=== PATIENT | male | born 1955 | race Caucasian/White ===

== ENCOUNTER → 2019-07-11 15:14 | Outpatient (CLI) | payer OTHER, SELFPAY ==
--- NOTE | 2019-07-11 15:18 | DI.RAD.S_ITS ---
PROCEDURE: XR LUMBAR SPINE 2-3V INDICATIONS: back pain TECHNIQUE: 3 views of the lumbar spine were acquired. COMPARISON: [facility], , CHEST 2 VIEW, 12/14/2010, 15:54. Merged with [facility], CHEST 2 VIEW, 11/05/2017, 12:46. [facility], , CHEST 2 VIEW, 11/12/2017, 10:28. FINDINGS: Bones: 5 [id number] vertebrae are present. There is abnormal bony alignment with grade 2 anterolisthesis of L5 on S1 and slight grade 1 retrolisthesis of L4 on L5. No vertebral body compression fractures. No suspicious bony lesions. There is a moderate degree of degenerative disc disease at L2-3 and mild to moderate such degeneration elsewhere. 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 Soft tissues: Overlying bowel gas pattern is normal. No suspicious soft tissue calcifications. IMPRESSION: Chronic degenerative changes without acute disease as discussed above, allowing for slight retrolisthesis of L4 and L5 and moderate anterolisthesis of L5 on S1. No compression fractures seen. Dictated by: Reji Stovall M.D. on 07/11/2019 at 15:48 Approved by: Reji Stovall M.D. on 07/11/2019 at 15:51
== END ==
PROVIDERS: PCP Family Medicine; Visit Provider Hospitalist
DX: M54.5 Low back pain (principal); M51.16 Intervertebral disc disorders with radiculopathy, lumbar region; M47.26 Other spondylosis with radiculopathy, lumbar region; M47.27 Other spondylosis with radiculopathy, lumbosacral region; M43.17 Spondylolisthesis, lumbosacral region
CPT/HCPCS: 72100

== ENCOUNTER → 2019-07-15 14:29 | Outpatient (CLI) | payer OTHER, SELFPAY ==
--- NOTE | 2019-07-15 14:31 | DI.RAD.S_ITS ---
PROCEDURE: XR THORACIC SPINE 3V INDICATIONS: back pain TECHNIQUE: 3 views of the thoracic spine were acquired. COMPARISON: [facility], , XR LUMBAR SPINE 2-3V, 07/11/2019, 15:17. [facility], , CHEST 2 VIEW, 11/12/2017, 10:28. FINDINGS: Bones: No fractures or dislocations. No suspicious bony lesions. Mild degenerative disc disease in the lower thoracic spine. 12 pairs of ribs are noted, and appear intact where visualized. Soft tissues: No paravertebral stripe thickening. IMPRESSION: Mild degenerative disease in the lower thoracic spine. Dictated by: Deborah Amador M.D. on 07/15/2019 at 17:48 Approved by: Deborah Amador M.D. on 07/15/2019 at 17:50
[2019-07-15 15:46] LABS: Add Manual Diff / Slide Review NO; Basophils Absolute Auto 100 /uL (0-100); Basophils Percent Auto 0.6 % (0-2); Eosinophils Absolute Auto 0 /uL (0-450); Eosinophils Percent Auto 0.5 % (2-4); Hematocrit 36.9 % (41-53); Hemoglobin 12.5 g/dL (13.5-17.5); Lymphocytes Absolute Auto 800 /uL (1100-4500); Lymphocytes Percent Auto 10.6 % (25-40); Mean Corpuscular HGB Conc 33.9 % (30-36); Mean Corpuscular Hemoglobin 30.3 PG (26-34); Mean Corpuscular Volume 89.4 fL (80-100); Monocytes Absolute Auto 600 /uL (0-900); Monocytes Percent Auto 8.2 % (3-14); Neutrophils Absolute Auto 6300 /uL (1500-7000); Neutrophils Percent Auto 80.1 % (50-75); Platelet Count 446 X10^3/uL (150-400); Red Blood Cell Count 4.13 X10^6/uL (4.5-5.9); Red Cell Distribution Width 13.2 % (11.6-14.8); White Blood Cell Count 7.9 X10^3/uL (4.5-11.0)
[2019-07-15 16:21] LABS: Alanine Aminotransferase 15 IU/L (21-72); Albumin 3.7 g/dL (3.5-5.0); Albumin Globulin Ratio 1.3 (1.0-2.8); Alkaline Phosphatase 71 U/L (38-126); Aspartate Aminotransferase 23 IU/L (17-59); BUN Creatinine Ratio 13.3 (6-22); Bilirubin Total 0.3 mg/dL (0.2-1.3); Blood Urea Nitrogen 8 mg/dL (9-20); Calcium 9.3 mg/dL (8.4-10.2); Carbon Dioxide 26 mmol/L (22-32); Chloride 88 mmol/L (98-107); Estimated Glomerular Filt Rate > 60.0 mL/min (>60); Globulin 2.9 g/dL (1.7-4.1); Glucose 92 mg/dL (80-110); HEMOLYSIS < 15 (0-50); Potassium 5.1 mmol/L (3.4-5.1); Sodium 125 mmol/L (137-145); Total Protein 6.6 g/dL (6.3-8.2)
== END ==
PROVIDERS: PCP Family Medicine; Visit Provider Hospitalist
DX: M54.9 Dorsalgia, unspecified (principal); M47.814 Spondylosis without myelopathy or radiculopathy, thoracic region
CPT/HCPCS: 36415; 72072; 80053; 85025

== ENCOUNTER → 2019-07-16 14:02 | Outpatient (CLI) | payer OTHER, SELFPAY ==
--- NOTE | 2019-07-16 14:06 | DI.RAD.S_ITS ---
PROCEDURE: XR CHEST 2V INDICATIONS: back pain TECHNIQUE: 2 views of the chest were acquired. COMPARISON: [facility], , XR THORACIC SPINE 3V, 07/15/2019, 14:33. [facility], , CHEST 2 VIEW, 11/12/2017, 10:28. FINDINGS: Surgical changes and devices: None. Lungs and pleura: Interval development of diffuse opacities of the right hemithorax with focal consolidation involving the medial segment of the right middle lobe and the right lower lobe with mild patchy opacities in the left mid and lower lung zones. Small right pleural effusion. Stable blunting of the left costophrenic angle. Findings appear to be superimposed on background changes of chronic obstructive pulmonary physiology. No pneumothorax. Mediastinum: The cardiomediastinal contours remain stable. Heart size is normal. Bones and chest wall: No suspicious bony abnormalities. Soft tissues appear unremarkable. IMPRESSION: Interval development of right middle lobe and right lower lobe consolidation with diffuse opacities of the left hemithorax as well as patchy left basilar opacities. Findings are consistent with multiple focal pneumonia. Additionally, there is an associated right pleural effusion and chronic background changes of chronic obstructive pulmonary physiology. Recommend follow up chest radiograph 4-6 weeks after treatment to document resolution of findings and/or return to baseline examination. Findings were discussed with Dr. Calli Rose at 1440hrs on 07/16/2019 Dictated by: Javy Iverson M.D. on 07/16/2019 at 14:30 Approved by: Javy Iverson M.D. on 07/16/2019 at 14:42
== END ==
PROVIDERS: PCP Family Medicine; Visit Provider Hospitalist
DX: M54.9 Dorsalgia, unspecified (principal); J90 Pleural effusion, not elsewhere classified; M54.30 Sciatica, unspecified side
CPT/HCPCS: 71046

== ENCOUNTER 2019-08-12 10:07 | Inpatient (IN) | payer OTHER, SELFPAY ==
[2019-08-12] VITALS (10 sets, daily range): BP systolic 134–164; BP diastolic 76–93; PULSE 84–108; RESP 14–24; TEMP 36.5–37.3; O2SAT 90–97; BMI 20.7
--- NOTE | 2019-08-12 10:17 | ED.SOB ---
HPI - SOB/Dyspnea General Chief Complaint: Shortness of Breath/Dyspnea Stated Complaint: difficulty breathing Time Seen by Provider: 08/12/19 10:17 Source: patient Mode of arrival: Ambulatory Limitations: no limitations History of Present Illness HPI Narrative: 64-year-old smoker with history of COPD presents with a chief complaint of significantly worsening shortness of breath over the past few days. He has had subjective fever been ongoing productive cough. On arrival he is getting through about 3 words before taking a deep breath and has a pulse ox in the upper 80s. He does not use home oxygen. Patient had been on pneumonia about a month ago and symptoms largely resolved until recently when he started feeling quite ill again. MD Complaint: shortness of breath and cough Onset (ago): week(s) Context: recent illness Severity: moderate Consistency/Duration: constant Relieving factors: rest Exacerbating factors: exertion Known history of: COPD Related Data Home Medications Medication Instructions Recorded Confirmed acetaminophen 650 mg PO PRN PRN #0 09/06/16 08/12/19 calcium carbonate [Tums] 500 mg PO PRN PRN #0 11/07/16 08/12/19 diphenhydramine HCl [Benadryl 50 mg PO BEDTIME #0 11/07/16 08/12/19 Allergy] omeprazole 40 mg PO QAM 08/12/19 08/12/19 triamcinolone acetonide 1 applictn TOPICAL BEDTIME 08/12/19 08/12/19 Previous Rx's Medication Instructions Recorded albuterol sulfate 90 mcg/actuation 1 puff INHALATION QID PRN #1 inh 07/15/19 aerosol inhaler ibuprofen 600 mg tablet 600 mg PO Q6H PRN #30 tab 07/15/19 tiotropium bromide 18 mcg capsule 1 cap INHALATION DAILY #60 07/30/19 with inhalation device inhalation Allergies Allergy/AdvReac Type Severity Reaction Status Date / Time No Known Drug Allergies Allergy Verified 08/12/19 10:25 Review of Systems Constitutional Constitutional: Denies chills, Denies fatigue, Denies fever(s), Denies frequent falls, Denies lethargy and Denies weakness Eyes Eyes: Denies change in vision, Denies eye discharge, Denies irritation and Denies loss of vision ENT Ears, Nose, Mouth, and Throat: Denies change in voice, Denies dizziness, Denies neck pain, Denies sore throat and Denies throat swelling Cardiovascular Cardiovascular: Denies chest pain, Denies irregular heart rhythm, Denies lightheadedness, Denies palpitations, Denies dyspnea, Denies dyspnea on exertion and Denies orthopnea Respiratory Respiratory: Denies cough, Denies dyspnea, Denies dyspnea on exertion and Denies wheezing Gastrointestinal Gastrointestinal: Denies abdominal pain, Denies change in bowel habits, Denies diarrhea, Denies nausea and Denies vomiting Genitourinary Genitourinary: Denies hematuria, Denies flank pain, Denies urinary incontinence and Denies urinary urgency Musculoskeletal Musculoskeletal: Denies back pain, Denies muscle weakness, Denies neck pain, Denies numbness and Denies tingling Integumentary/Breasts Skin/Breast: Denies pruritus, Denies erythema, Denies rash and Denies wounds Neurologic Neurologic: Denies behavioral changes, Denies confusion, Denies dizziness, Denies frequent falls, Denies loss of vision, Denies numbness, Denies tingling and Denies weakness Psychiatric Psychiatric: Denies anxiety, Denies behavioral changes, Denies confusion, Denies depression, Denies homicidal ideation and Denies suicidal ideation Endocrine Endocrine: Denies fatigue, Denies flushing and Denies palpitations Hematologic/Lymphatic Hematologic/Lymphatic: Denies easy bruising Allergic/Immunologic Allergic/Immunologic: Denies urticaria, Denies throat swelling and Denies wheezing Patient History Medical History (Updated 08/12/19 @ 13:52 by Isma Stark DO) Community acquired pneumonia (Acute 06/2019) COPD (chronic obstructive pulmonary disease) (Acute) Social History household members: none Smoking Status: Current every day smoker alcohol intake: former Alcohol type: other Substance Use Type: does not use Exam Initial Vital Signs Initial Vital Signs: Vital Signs Temperature 97.8 F 08/12/19 10:10 Pulse Rate 108 H 08/12/19 10:10 Respiratory Rate 20 08/12/19 10:10 Blood Pressure 164/85 H 08/12/19 10:10 Pulse Oximetry 90 L 08/12/19 10:10 Course Orders Ordered: Acetaminophen (Tylenol) 650 mg PO Q6HR PRN PRN Reason: As Needed for Fever/Mild Pain Last Admin: 08/12/19 19:13 Dose: 650 mg Documented by: MELANIE Albuterol (Ventolin) 2.5 mg INH [id number] PRN PRN Reason: Shortness Of Breath Last Admin: 08/12/19 22:38 Dose: 2.5 mg Documented by: COOPER Albuterol/Ipratropium (Duoneb) 3 ml INH [id number] [facility] Heparin Sodium (Porcine) (Heparin) 5,000 unit SUBCUT BID [facility] Last Admin: 08/12/19 21:49 Dose: 5,000 unit Documented by: MELANIE Sodium Chloride (Normal Saline 0.9%) 1,000 mls @ 150 mls/hr IV CONT KOFFI Last Admin: 08/13/19 02:38 Dose: 150 mls/hr Documented by: Infusion: 08/13/19 02:38 Dose: 150 mls/hr Documented by: Admin: 08/12/19 22:45 Dose: 150 mls/hr Documented by: Infusion: 08/12/19 18:56 Dose: 150 mls/hr Documented by: Infusion: 08/12/19 17:30 Dose: 150 mls/hr Documented by: Infusion: 08/12/19 16:06 Dose: 0 mls/hr Documented by: Admin: 08/12/19 10:51 Dose: 150 mls/hr Documented by: FIDEL Prednisone (Deltasone) 40 mg PO DAILY [facility] Trazodone HCl (Desyrel) 50 mg PO BEDTIME [facility] Last Admin: 08/12/19 23:09 Dose: 50 mg Documented by: MELANIE Discontinued Medications Albuterol/Ipratropium (Duoneb) 3 ml INH NOW ONE Stop: 08/12/19 10:22 Last Admin: 08/12/19 10:50 Dose: 3 ml Documented by: SAM Albuterol/Ipratropium (Duoneb) 3 ml INH NOW ONE Stop: 08/12/19 10:28 Last Admin: 08/12/19 11:09 Dose: Not Given Documented by: APRIL Ceftriaxone Sodium/Dextrose (Rocephin) 1 gm in 50 mls @ 100 mls/hr IV NOW ONE Stop: 08/12/19 10:50 Last Infusion: 08/12/19 11:25 Dose: 0 mls/hr Documented by: Admin: 08/12/19 10:50 Dose: 100 mls/hr Documented by: FIDEL Ceftriaxone Sodium/Dextrose (Rocephin) 1 gm in 50 mls @ 100 mls/hr IV NOW ONE Stop: 08/12/19 13:32 Last Admin: 08/12/19 13:06 Dose: Not Given Documented by: APRIL Azithromycin 500 mg/ Dextrose 250 mls @ 250 mls/hr IV NOW ONE Stop: 08/12/19 13:04 Last Infusion: 08/12/19 14:50 Dose: 0 mls/hr Documented by: Admin: 08/12/19 13:21 Dose: 250 mls/hr Documented by: APRIL Methylprednisolone (Solu-Medrol 125 Mg Vial) 125 mg IV NOW ONE Stop: 08/12/19 10:22 Last Admin: 08/12/19 10:50 Dose: 125 mg Documented by: FIDEL Vital Signs Vital signs: Vital Signs - 8 hr 08/12/19 10:10 08/12/19 10:53 08/12/19 12:51 Temperature 97.8 F Pulse Rate 108 H 90 85 Respiratory Rate 20 20 22 Blood Pressure 164/85 H Blood Pressure [Right Arm] 146/82 H Pulse Oximetry 90 L 94 92 08/12/19 13:00 08/12/19 13:33 Temperature Pulse Rate 84 89 Respiratory Rate 20 18 Blood Pressure Blood Pressure [Right Arm] 142/84 H 161/93 H Pulse Oximetry 96 96 MDM - SOB/Dyspnea Lab Data Result diagrams: 08/12/19 10:25 08/12/19 10:25 Labs: Lab Results 08/12/19 08/12/19 08/12/19 Range/Units 10:25 10:25 10:25 WBC 8.6 (4.5-11.0) X10^3/uL RBC 4.09 L (4.5-5.9) X10^6/uL Hgb 12.1 L (13.5-17.5) g/dL Hct 35.7 L (41-53) % MCV 87.2 (80-100) fL MCH 29.5 (26-34) PG MCHC 33.8 (30-36) % RDW 13.8 (11.6-14.8) % Plt Count 396 (150-400) X10^3/uL Neut % (Auto) 83.8 H (50-75) % Lymph % (Auto) 10.0 L (25-40) % [place] % (Auto) 4.6 (3-14) % Eos % (Auto) 0.8 L (2-4) % Baso % (Auto) 0.8 (0-2) % Neut # (Auto) 7200 H (7927-5179) /uL Lymph # (Auto) 900 L (4351-7480) /uL [place] # (Auto) 400 (0-900) /uL Eos # (Auto) 100 (0-450) /uL Baso # (Auto) 100 (0-100) /uL ABG pH (7.35-7.45) ABG pCO2 (35-45) mmHg ABG pO2 (80-100) mmHg ABG HCO3 (22-26) mmol/L ABG Total CO2 (21-31) mmol/L ABG O2 Saturation (95-100) % ABG Base Excess (-2-2) mmol/L FiO2 Sodium 126 L (137-145) mmol/L Potassium 4.1 (3.4-5.1) mmol/L Chloride 89 L (98-107) mmol/L Carbon Dioxide 22 (22-32) mmol/L BUN 15 (9-20) mg/dL Creatinine 0.90 (0.66-1.25) mg/dL Estimated GFR > 60.0 (>60) mL/min BUN/Creatinine Ratio 16.7 (6-22) Glucose 114 H (80-110) mg/dL Lactate (0.7-2.1) mmol/L Calcium 9.0 (8.4-10.2) mg/dL Magnesium 1.4 L (1.6-2.3) mg/dL Total Bilirubin 0.5 (0.2-1.3) mg/dL AST 27 (17-59) IU/L ALT 13 L (21-72) IU/L Alkaline Phosphatase 83 (38-126) U/L Total Creatine Kinase 54 L (55-170) U/L CK-MB (CK-2) TNP CK-MB (CK-2) Rel Index TNP Troponin I 0.061 H (0.01-0.034) ng/mL B-Natriuretic Peptide 261 H (<100) Total Protein 6.7 (6.3-8.2) g/dL Albumin 3.6 (3.5-5.0) g/dL Globulin 3.1 (1.7-4.1) g/dL Albumin/Globulin Ratio 1.2 (1.0-2.8) Procalcitonin (<0.5) ng/mL 08/12/19 08/12/19 08/12/19 Range/Units 10:25 10:25 10:35 WBC (4.5-11.0) X10^3/uL RBC (4.5-5.9) X10^6/uL Hgb (13.5-17.5) g/dL Hct (41-53) % MCV (80-100) fL MCH (26-34) PG MCHC (30-36) % RDW (11.6-14.8) % Plt Count (150-400) X10^3/uL Neut % (Auto) (50-75) % Lymph % (Auto) (25-40) % [place] % (Auto) (3-14) % Eos % (Auto) (2-4) % Baso % (Auto) (0-2) % Neut # (Auto) (7523-1163) /uL Lymph # (Auto) (1397-6524) /uL [place] # (Auto) (0-900) /uL Eos # (Auto) (0-450) /uL Baso # (Auto) (0-100) /uL ABG pH 7.43 (7.35-7.45) ABG pCO2 27.2 L (35-45) mmHg ABG pO2 79 L (80-100) mmHg ABG HCO3 18 L (22-26) mmol/L ABG Total CO2 19 L (21-31) mmol/L ABG O2 Saturation 96 (95-100) % ABG Base Excess -6.0 L (-2-2) mmol/L FiO2 21 Sodium (137-145) mmol/L Potassium (3.4-5.1) mmol/L Chloride (98-107) mmol/L Carbon Dioxide (22-32) mmol/L BUN (9-20) mg/dL Creatinine (0.66-1.25) mg/dL Estimated GFR (>60) mL/min BUN/Creatinine Ratio (6-22) Glucose (80-110) mg/dL Lactate 1.1 (0.7-2.1) mmol/L Calcium (8.4-10.2) mg/dL Magnesium (1.6-2.3) mg/dL Total Bilirubin (0.2-1.3) mg/dL AST (17-59) IU/L ALT (21-72) IU/L Alkaline Phosphatase (38-126) U/L Total Creatine Kinase (55-170) U/L CK-MB (CK-2) CK-MB (CK-2) Rel Index Troponin I (0.01-0.034) ng/mL B-Natriuretic Peptide (<100) Total Protein (6.3-8.2) g/dL Albumin (3.5-5.0) g/dL Globulin (1.7-4.1) g/dL Albumin/Globulin Ratio (1.0-2.8) Procalcitonin 0.07 (<0.5) ng/mL 08/12/19 Range/Units 13:15 WBC (4.5-11.0) X10^3/uL RBC (4.5-5.9) X10^6/uL Hgb (13.5-17.5) g/dL Hct (41-53) % MCV (80-100) fL MCH (26-34) PG MCHC (30-36) % RDW (11.6-14.8) % Plt Count (150-400) X10^3/uL Neut % (Auto) (50-75) % Lymph % (Auto) (25-40) % [place] % (Auto) (3-14) % Eos % (Auto) (2-4) % Baso % (Auto) (0-2) % Neut # (Auto) (2772-7845) /uL Lymph # (Auto) (5937-0417) /uL [place] # (Auto) (0-900) /uL Eos # (Auto) (0-450) /uL Baso # (Auto) (0-100) /uL ABG pH (7.35-7.45) ABG pCO2 (35-45) mmHg ABG pO2 (80-100) mmHg ABG HCO3 (22-26) mmol/L ABG Total CO2 (21-31) mmol/L ABG O2 Saturation (95-100) % ABG Base Excess (-2-2) mmol/L FiO2 Sodium (137-145) mmol/L Potassium (3.4-5.1) mmol/L Chloride (98-107) mmol/L Carbon Dioxide (22-32) mmol/L BUN (9-20) mg/dL Creatinine (0.66-1.25) mg/dL Estimated GFR (>60) mL/min BUN/Creatinine Ratio (6-22) Glucose (80-110) mg/dL Lactate (0.7-2.1) mmol/L Calcium (8.4-10.2) mg/dL Magnesium (1.6-2.3) mg/dL Total Bilirubin (0.2-1.3) mg/dL AST (17-59) IU/L ALT (21-72) IU/L Alkaline Phosphatase (38-126) U/L Total Creatine Kinase (55-170) U/L CK-MB (CK-2) CK-MB (CK-2) Rel Index Troponin I 0.052 H (0.01-0.034) ng/mL B-Natriuretic Peptide (<100) Total Protein (6.3-8.2) g/dL Albumin (3.5-5.0) g/dL Globulin (1.7-4.1) g/dL Albumin/Globulin Ratio (1.0-2.8) Procalcitonin (<0.5) ng/mL Urine Dip Bedside Urine Glucose Negative Bedside Urine Bilirubin - Negative Bedside Urine Ketone - Negative Urine Specific [place] 1.015 Bedside Urine Occult Blood - Negative Bedside Urine pH 6.0 Bedside Urine Protein + 30 Bedside Urine Urobilinogen - Negative Bedside Urine Nitrite - Negative Bedside Urine Leukocytes - Negative Esterase MDM Narrative Medical decision making narrative: Multiple etiologies for patient's symptoms considered including: [Exacerbation of COPD versus community-acquired pneumonia versus other] On arrival he was quite SOB, tachypneic, 3 word sentences with O2 in the 80s. He was given pulmonary toilet and has some improvement, but still working. CXR notes multilobar pneumonia Discharge Plan Departure Patient Disposition: Admitted As Inpatient Clinical Impression: Community acquired pneumonia Qualifiers: Laterality: left Lung location: unspecified part of lung Qualified Code(s): J18.9 - Pneumonia, unspecified organism COPD (chronic obstructive pulmonary disease) Qualifiers: COPD type: COPD with acute exacerbation Qualified Code(s): J44.1 - Chronic obstructive pulmonary disease with (acute) exacerbation Discharge Date/Time: 08/12/19 16:05 Referrals: Lili Schaeffer DO [Primary Care Provider] - Admit Date/Time: 08/12/19 14:59 Admit Provider: Dario Pack
--- NOTE | 2019-08-12 10:24 | DI.RAD.S_ITS ---
PROCEDURE: XR CHEST 2V INDICATIONS: shortness of breath TECHNIQUE: 2 views of the chest were acquired. COMPARISON: [facility], CR, XR CHEST 2V, 07/16/2019, 14:05. FINDINGS: Surgical changes and devices: None. Lungs and pleura: Increasing right perihilar and infrahilar alveolar consolidation as well as slight worsening of mild airspace disease throughout the right upper lobe. The left lung is hyperexpanded, demonstrates coarse interstitium, and a new small infrahilar parenchymal opacity. Blunting of the right lateral costophrenic angle secondary to pleural thickening or effusion. No pneumothorax. Mediastinum: Mediastinal contours are normal. Heart size is normal. Bones and chest wall: No suspicious bony abnormalities. Soft tissues appear unremarkable. IMPRESSION: Worsening of diffuse right lung parenchymal opacity with consolidation in the right infrahilar region. This may be an infectious process, inflammation, or neoplasm. Given considerable interval worsening, further evaluation with contrast-enhanced chest CT is recommended. Hyperexpanded left lung with a small left lower lobe consolidation. Dictated by: Sushma Cruz M.D. on 08/12/2019 at 12:28 Approved by: Sushma Cruz M.D. on 08/12/2019 at 12:32
[2019-08-12 10:38] LABS: Add Manual Diff / Slide Review NO; Basophils Absolute Auto 100 /uL (0-100); Basophils Percent Auto 0.8 % (0-2); Eosinophils Absolute Auto 100 /uL (0-450); Eosinophils Percent Auto 0.8 % (2-4); Hematocrit 35.7 % (41-53); Hemoglobin 12.1 g/dL (13.5-17.5); Lymphocytes Absolute Auto 900 /uL (1100-4500); Mean Corpuscular HGB Conc 33.8 % (30-36); Mean Corpuscular Hemoglobin 29.5 PG (26-34); Mean Corpuscular Volume 87.2 fL (80-100); Monocytes Absolute Auto 400 /uL (0-900); Monocytes Percent Auto 4.6 % (3-14); Neutrophils Absolute Auto 7200 /uL (1500-7000); Neutrophils Percent Auto 83.8 % (50-75); Platelet Count 396 X10^3/uL (150-400); Red Blood Cell Count 4.09 X10^6/uL (4.5-5.9); Red Cell Distribution Width 13.8 % (11.6-14.8); White Blood Cell Count 8.6 X10^3/uL (4.5-11.0)
[2019-08-12] MEDS: ALBUTEROL/IPRATROPIUM 3 ML AMPUL INH (10:50)
[2019-08-12] MEDS: methylPREDNISolone 125 MG/2 ML VIAL IV (10:50)
[2019-08-12] MEDS: CEFTRIAXONE 1 GM/50 ML FROZ.PIGGY IV (10:50)
[2019-08-12] MEDS: SODIUM CHLORIDE 0.9% 1,000 ML 150 ML IV ×2 (10:51→22:45)
[2019-08-12 10:52] LABS: Creatine Kinase 54 U/L (55-170); Magnesium 1.4 mg/dL (1.6-2.3)
[2019-08-12 10:53] LABS: Alanine Aminotransferase 13 IU/L (21-72); Albumin 3.6 g/dL (3.5-5.0); Albumin Globulin Ratio 1.2 (1.0-2.8); Alkaline Phosphatase 83 U/L (38-126); Aspartate Aminotransferase 27 IU/L (17-59); BUN Creatinine Ratio 16.7 (6-22); Bilirubin Total 0.5 mg/dL (0.2-1.3); Blood Urea Nitrogen 15 mg/dL (9-20); Carbon Dioxide 22 mmol/L (22-32); Chloride 89 mmol/L (98-107); Estimated Glomerular Filt Rate > 60.0 mL/min (>60); Globulin 3.1 g/dL (1.7-4.1); Glucose 114 mg/dL (80-110); HEMOLYSIS < 15 (0-50); Lactate (Lactic Acid) 1.1 mmol/L (0.7-2.1); Potassium 4.1 mmol/L (3.4-5.1); Sodium 126 mmol/L (137-145); Total Protein 6.7 g/dL (6.3-8.2)
--- NOTE | 2019-08-12 10:55 | RT ---
Addendum entered by Angela Elise, RT 08/12/19 19:21: Original Note: rt consult orderd by nurse. Pt not seen by MD yet. Pt takes flovent MDI. recent dx'd with pneumonia. No home O2. Pt is pleasant. See EMR for breath sounds. ABG drawn, results given to Dr sawant.
[2019-08-12 10:56] LABS: B Type Natriuretic Peptide 261 (<100)
[2019-08-12 11:04] LABS: Troponin I 0.061 ng/mL (0.01-0.034)
[2019-08-12 11:06] LABS: HCO3 ABG 18 mmol/L (22-26); PCO2 ABG 27.2 mmHg (35-45); PO2 ABG 79 mmHg (80-100); TCO2 ABG 19 mmol/L (21-31); pH ABG 7.43 (7.35-7.45)
[2019-08-12 11:07] LABS: Fractionated Inspired Oxygen 21; Oxygen Saturation ABG 96 % (95-100)
[2019-08-12 11:07] LABS: Procalcitonin 0.07 ng/mL (<0.5)
[2019-08-12] MEDS: AZITHROMYCIN 500 MG in DEXTROSE 5% IN WATER 250 ML IV (13:21)
[2019-08-12 13:46] LABS: Troponin I 0.052 ng/mL (0.01-0.034)
--- NOTE | 2019-08-12 17:32 | P.HP_ITS ---
History of Present Illness History of Present Illness Date Patient Seen: 08/12/19 Time Patient Seen: 17:32 Chief complaint: difficulty breathing Narrative: Rafy Renner is a 64-year-old male with past medical history of COPD (active smoker but trying to quit) presented to the ED with shortness of breath. His shortness of breath has been progressing over the past few months he says, but has been markedly worse over the past few days. He reported a subjective fe cynthia and ongoing productive cough of yellow sputum. In the emergency room he was having a lot of trouble breathing and had a pulse oximetry reading in the upper 80s and was unable to speak approximately 3 words before taking a deep breath. He reports outpatient treatment for pneumonia about a month ago and was feeling better again until a few days ago. He has been seeing his primary care physici an for help with smoking cessation as well as manipulation of his COPD medications to try and control his shortness of breath but this has not been helping much. He admitted to subjective fever with much questioning but initially denied this, he does have a productive cough of yellow sputum, but de nies nasal congestion or runny nose, he has diffuse bone pains which are unchanged the last few days and he further reports difficulty sleeping. He denies any nausea, vomiting, chest pain, palpitations. He is used to walking approximately 5 miles a day, however recently he is only able to go a few steps in the last few days he is short of breath at rest. In the ED the patient was hypoxic as noted above, he was given steroids and nebulizers which helped his breathing. His chest x-ray showed multi lobar pneumonia, a right-sided pleural effusion, and the patient was started on ceftriaxone and azithromycin. He was admitted to Medicine for hypoxemic respiratory failure secondary to likely pneumonia and pleural effusion with possible COPD exacerbation. Patient History Medical History (Updated 08/12/19 @ 13:52 by Isma Stark DO) Community acquired pneumonia (Acute 06/2019) COPD (chronic obstructive pulmonary disease) (Acute) Family & Social History Social History: household members none Prior Living Arrangements House Safety & Behavioral: Feels Safe in Current Yes Environment Been Physically Hurt or No Threatened By a Person Suicidal Ideation Description None Suicide Plan Description No Plan Tobacco & Substance use: Tobacco type cigarettes Smoking Status Current every day smoker alcohol intake former Substance Use Type does not use Meds Home Medications and Allergies Home Medications Medication Instructions Recorded Confirmed Type acetaminophen 650 mg PO PRN PRN #0 09/06/16 08/12/19 History calcium carbonate [Tums] 500 mg PO PRN PRN #0 11/07/16 08/12/19 History diphenhydramine HCl [Benadryl 50 mg PO BEDTIME #0 11/07/16 08/12/19 History Allergy] albuterol sulfate 90 mcg/actuation 1 puff INHALATION QID PRN #1 inh 07/15/19 08/12/19 Rx aerosol inhaler ibuprofen 600 mg tablet 600 mg PO Q6H PRN #30 tab 07/15/19 08/12/19 Rx tiotropium bromide 18 mcg capsule 1 cap INHALATION DAILY #60 07/30/19 08/12/19 Rx with inhalation device inhalation omeprazole 40 mg PO QAM 08/12/19 08/12/19 History triamcinolone acetonide 1 applictn TOPICAL BEDTIME 08/12/19 08/12/19 History Allergies Allergy/AdvReac Type Severity Reaction Status Date / Time No Known Drug Allergies Allergy Verified 08/12/19 10:25 Review of Systems Review of Systems Narrative: All other systems reviewed with the patient and are negative unless otherwise stated. Exam Vital Signs (past 8 hours): - 08/12/19 10:10 08/12/19 10:53 08/12/19 12:51 Temperature 97.8 F Pulse Rate 108 H 90 85 Respiratory Rate 20 20 22 Blood Pressure 164/85 H Blood Pressure [Right Arm] 146/82 H Pulse Oximetry 90 L 94 92 08/12/19 13:00 08/12/19 13:33 08/12/19 14:30 Temperature Pulse Rate 84 89 95 H Respiratory Rate 20 18 24 Blood Pressure Blood Pressure [Right Arm] 142/84 H 161/93 H 139/90 Pulse Oximetry 96 96 92 08/12/19 16:05 Temperature 97.7 F Pulse Rate 92 H Respiratory Rate 16 Blood Pressure 151/86 H Blood Pressure [Right Arm] Pulse Oximetry 96 Oxygen Delivery Method Room Air Oxygen Flow Rate 0 Narrative Exam Narrative: GENERAL APPEARANCE: Chronically mildly ill appearing male, pale, but in good spirits. SKIN: Inspection of the skin reveals no rashes, ulcerations or petechiae. HEENT: The sclerae were anicteric and conjunctivae were pink and moist. Extraocular movements were intact and pupils were equal, round with normal accommodation. External inspection of the ears and nose showed no scars, lesions, or masses. Lips, teeth, and gums showed normal mucosa. His dentition is poor. The oral mucosa, hard and soft palate, tongue and posterior pharynx were unremarkable. NECK: Supple and symmetric. There was no thyroid enlargement, and no tenderness, or masses were felt. CHEST: Normal AP diameter and normal contour without any kyphoscoliosis. LUNGS: Diminished breath sounds over the right lower lobe, diffuse upper and middle lobe expiratory wheezes bilaterally. CARDIOVASCULAR: There was a regular rate and rhythm without any murmurs, gallops, rubs. Peripheral pulses were 2+ and symmetric. ABDOMEN: Soft and nontender with normal bowel sounds. No ascites was noted. MUSCULOSKELETAL: There was no tenderness or effusions noted. Muscle strength and tone were normal. EXTREMITIES: No cyanosis, clubbing or edema. NEUROLOGIC: Alert and oriented x 3. Normal affect. Strength is +5/5 in the Upper Extremities and Lower Extremities Bilaterally. Sensation to touch was normal. Objective Labs Result Diagrams: 08/12/19 10:25 08/12/19 10:25 Labs: Laboratory Results - last 24 hr 08/12/19 08/12/19 08/12/19 10:25 10:25 10:25 WBC 8.6 RBC 4.09 L Hgb 12.1 L Hct 35.7 L MCV 87.2 MCH 29.5 MCHC 33.8 RDW 13.8 Plt Count 396 Neut % (Auto) 83.8 H Lymph % (Auto) 10.0 L [place] % (Auto) 4.6 Eos % (Auto) 0.8 L Baso % (Auto) 0.8 Neut # (Auto) 7200 H Lymph # (Auto) 900 L [place] # (Auto) 400 Eos # (Auto) 100 Baso # (Auto) 100 ABG pH ABG pCO2 ABG pO2 ABG HCO3 ABG Total CO2 ABG O2 Saturation ABG Base Excess FiO2 Sodium 126 L Potassium 4.1 Chloride 89 L Carbon Dioxide 22 BUN 15 Creatinine 0.90 Estimated GFR > 60.0 BUN/Creatinine Ratio 16.7 Glucose 114 H Lactate Calcium 9.0 Magnesium 1.4 L Total Bilirubin 0.5 AST 27 ALT 13 L Alkaline Phosphatase 83 Total Creatine Kinase 54 L CK-MB (CK-2) TNP CK-MB (CK-2) Rel Index TNP Troponin I 0.061 H B-Natriuretic Peptide 261 H Total Protein 6.7 Albumin 3.6 Globulin 3.1 Albumin/Globulin Ratio 1.2 Procalcitonin 08/12/19 08/12/19 08/12/19 10:25 10:25 10:35 WBC RBC Hgb Hct MCV MCH MCHC RDW Plt Count Neut % (Auto) Lymph % (Auto) [place] % (Auto) Eos % (Auto) Baso % (Auto) Neut # (Auto) Lymph # (Auto) [place] # (Auto) Eos # (Auto) Baso # (Auto) ABG pH 7.43 ABG pCO2 27.2 L ABG pO2 79 L ABG HCO3 18 L ABG Total CO2 19 L ABG O2 Saturation 96 ABG Base Excess -6.0 L FiO2 21 Sodium Potassium Chloride Carbon Dioxide BUN Creatinine Estimated GFR BUN/Creatinine Ratio Glucose Lactate 1.1 Calcium Magnesium Total Bilirubin AST ALT Alkaline Phosphatase Total Creatine Kinase CK-MB (CK-2) CK-MB (CK-2) Rel Index Troponin I B-Natriuretic Peptide Total Protein Albumin Globulin Albumin/Globulin Ratio Procalcitonin 0.07 08/12/19 13:15 WBC RBC Hgb Hct MCV MCH MCHC RDW Plt Count Neut % (Auto) Lymph % (Auto) [place] % (Auto) Eos % (Auto) Baso % (Auto) Neut # (Auto) Lymph # (Auto) [place] # (Auto) Eos # (Auto) Baso # (Auto) ABG pH ABG pCO2 ABG pO2 ABG HCO3 ABG Total CO2 ABG O2 Saturation ABG Base Excess FiO2 Sodium Potassium Chloride Carbon Dioxide BUN Creatinine Estimated GFR BUN/Creatinine Ratio Glucose Lactate Calcium Magnesium Total Bilirubin AST ALT Alkaline Phosphatase Total Creatine Kinase CK-MB (CK-2) CK-MB (CK-2) Rel Index Troponin I 0.052 H B-Natriuretic Peptide Total Protein Albumin Globulin Albumin/Globulin Ratio Procalcitonin Assessment & Plan Assessment & Plan narrative: Rafy Renner is a 64-year-old male with past medical history of COPD (active smoker but trying to quit) presented to the ED with shortness of breath, his x-ray shows evidence of multilobar pneumonia as well as a new right-sided pleural effusion, as well as changes consistent with COPD. He is admitted with acute hypoxemic respiratory failure likely secondary to community-acquired pneumonia with possible parapneumonic effusion and possible COPD exacerbation. 1. Acute hypoxemic respiratory failure -O2 saturations in the mid 80s in the emergency room improved with supplemental oxygenation as well as nebulizers, steroids, and antibiotics given in the emergency room. His chest x-ray shows evidence of pneumonia, he admits to fevers but states that they are not severe and he has been afebrile here. He has no other symptoms of flu at this time. His chest x-ray shows a convincing pneumonia and a new right-sided pleural effusion. On my exam he had diffuse wheezes but this may be his baseline, however given increased cough production will treat him for COPD exacerbation with steroids. -continue ceftriaxone and azithromycin at this time -non urgent thoracentesis if there is enough fluid to help determine etiology of his effusion. He has a multi pack year smoking history and is still active smoker, so malignancy is a concern at this time and he does appear to have more chronic shortness of breath which has been worsening even without the infectious etiologies. Will order studies tomorrow as procedure is likely to be done tomorrow. Workup will include culture and gram stain, cell count, LDH, protein, cytology. -continue prednisone 40 mg x5 days -will send rapid flu, however this is likely to be negative 2. COPD exacerbation, acute on chronic -steroids as noted above -respiratory therapy, eval and treat -f/u infectious workup as noted above -albuterol prn 3. Right pleural effusion, acute, present on admission - - see workup as noted above. 4. Hyponatremia, chronic - patient appears to have chronic hyponatremia with prior NA of 125 in june of this year. He is asymptomatic at this time. Patient clinically appears euvolemic. Suspect an SIADH at this time, will need to further clarify with diagnostic workup. - urine evaluation including UA, urine Na and Osm for further clarification of etiology. Further workup pending this. Quality VTE Deep Vein Thrombosis/Pulmonary Embolism Present on Admission: No
[2019-08-12] MEDS: ACETAMINOPHEN 325 MG TABLET 650 MG PO (19:13)
[2019-08-12 19:41] LABS: Bacteria Urine None Seen
[2019-08-12 19:48] LABS: Appearance Urine UA CLEAR; Bilirubin Urine UA NEGATIVE (NEGATIVE); Color Urine UA YELLOW; Glucose Urine UA NEGATIVE (Negative); Ketones Urine UA NEGATIVE (NEGATIVE); Leukocyte Esterase Urine UA NEGATIVE (NEGATIVE); Nitrite Urine UA NEGATIVE (Negative); Occult Blood Urine UA NEGATIVE (Negative); Protein Urine UA NEGATIVE (Negative); Specific Gravity Urine UA <=1.005 (1.000-1.035); Urobilinogen Urine UA 0.2 E.U./dL (0.2)
[2019-08-12 19:55] LABS: Culture Indicated Urine Cult Not Indicated; RBC Urine 0-1/HPF (0-5/HPF); Squamous Epithelial Cell Urine 0-1 /HPF (0-5/HPF); WBC Urine 0-1/HPF (0-5/HPF)
[2019-08-12 20:03] LABS: Sodium Urine Random 47 mmol/L (30-90)
[2019-08-12 20:05] LABS: Influenza A and B by PCR Rapid Negative (Negative)
[2019-08-12] MEDS: HEPARIN 5,000 UNIT/ML VIAL 5000 UNIT SUBCUT (21:49)
[2019-08-12] MEDS: ALBUTEROL 2.5 MG/3 ML NEB (ADULT) INH (22:38)
[2019-08-12] MEDS: TRAZODONE 50 MG TABLET PO (23:09)
--- NOTE | 2019-08-12 23:43 | PC.NURSE ---
1700- Pt arrived to room 205 from ED via WC. A/O x4, 96%RA, LS wheezy insp/exp throughout lungs, intermittent non productive cough, SOB with exertion. HTN and tachy (95). RFA NS @ 150. ABD firm mild distention denies nausea, gen diet. SBA to BRP to void into hat for measurement, UA sent to lap, pending. Influenza A-B culture taken, negative. New orders for trazadone 50mg PO for sleep aid, miguel ángel @ 2300. Bed alarm on and call light in reach
[2019-08-13] VITALS (8 sets, daily range): BP systolic 133–162; BP diastolic 78–90; PULSE 83–103; RESP 15–24; TEMP 36.3–37.1; O2SAT 90–94
--- NOTE | 2019-08-13 | DI.RAD.S_ITS ---
PROCEDURE: XR CHEST 1V INDICATIONS: POST THORA CHEST TECHNIQUE: One view of the chest was acquired. COMPARISON: [facility], , XR CHEST 2V, 08/12/2019, 11:25. FINDINGS: Surgical changes and devices: None. Lungs and pleura: Status post right thoracentesis with very small residual effusion noted on the right. No pneumothorax identified. Persistent patchy opacities involving the left hemithorax with dense, irregular consolidation involving the right inferior perihilar/medial right lung base. Persistent interstitial prominence of the left lung with small left lower lung zone consolidation as before. No new acute air space disease identified. Mediastinum: The cardiomediastinal contours remain stable. Heart size is normal. Bones and chest wall: No suspicious bony lesions. Overlying soft tissues appear unremarkable. IMPRESSION: Very small residual right pleural effusion status post thoracentesis. No pneumothorax identified. Persistent diffuse ill-defined opacities of the right hemithorax with irregular consolidation in the right inferior perihilar/medial right lung base. Differential includes infectious, inflammatory, or neoplastic process. Recommend further evaluation with contrast enhanced chest CT. Stable hyperaeration of the left lung and small left lower lung zone consolidation. Dictated by: Javy Iverson M.D. on 08/13/2019 at 10:21 Approved by: Javy Iverson M.D. on 08/13/2019 at 10:27
[2019-08-13] MEDS: SODIUM CHLORIDE 0.9% 1,000 ML 150 ML IV (02:38)
--- NOTE | 2019-08-13 03:18 | PC.NURSE ---
[employer] Note: 0100: Resting in bed. Vital signs stable. IV in place in rt forearm with NS infusing at 150cc/hr. No complaint of pain or discomfort. Pt has frequent loose cough.
[2019-08-13 07:23] LABS: Add Manual Diff / Slide Review NO; Basophils Absolute Auto 0 /uL (0-100); Basophils Percent Auto 0.3 % (0-2); Eosinophils Absolute Auto 0 /uL (0-450); Hematocrit 31.9 % (41-53); Hemoglobin 10.7 g/dL (13.5-17.5); Lymphocytes Absolute Auto 900 /uL (1100-4500); Lymphocytes Percent Auto 9.5 % (25-40); Mean Corpuscular HGB Conc 33.6 % (30-36); Mean Corpuscular Hemoglobin 29.3 PG (26-34); Mean Corpuscular Volume 87.2 fL (80-100); Monocytes Absolute Auto 500 /uL (0-900); Monocytes Percent Auto 4.9 % (3-14); Neutrophils Absolute Auto 8600 /uL (1500-7000); Neutrophils Percent Auto 85.3 % (50-75); Platelet Count 370 X10^3/uL (150-400); Red Blood Cell Count 3.66 X10^6/uL (4.5-5.9); Red Cell Distribution Width 13.8 % (11.6-14.8)
[2019-08-13 07:37] LABS: Prothrombin Time 11.1 SECONDS (10.1-12.7)
[2019-08-13 07:40] LABS: PTT Partial Thromboplastin Tim 30 SECONDS (26.4-36.2)
[2019-08-13 07:41] LABS: Blood Urea Nitrogen 16 mg/dL (9-20); Calcium 8.5 mg/dL (8.4-10.2); Carbon Dioxide 23 mmol/L (22-32); Chloride 97 mmol/L (98-107); Estimated Glomerular Filt Rate > 60.0 mL/min (>60); Glucose 104 mg/dL (80-110); HEMOLYSIS < 15 (0-50); Magnesium 1.6 mg/dL (1.6-2.3); Potassium 4.2 mmol/L (3.4-5.1); Sodium 128 mmol/L (137-145)
[2019-08-13] MEDS: predniSONE 20 MG TABLET 40 MG PO (08:39)
[2019-08-13 08:51] LABS: Procalcitonin < 0.05 ng/mL (<0.5)
--- NOTE | 2019-08-13 09:11 | PATH_ITS ---
Note [facility] Accession Number: [id number] TESTS RESULT FLAG UNITS REF RANGE LAB Clinician Provided Cytology Information No. of containers..01 Other (Miscellaneous) 01 PLEURAL FLUID DIAGNOSIS: 02 PLEURAL FLUID INCONCLUSIVE. ATYPICAL CELLS ARE PRESENT. PLEASE SEE COMMENT. COMMENT: Immunohistochemistry studies were attempted, but too few atypical cells are present to allow for further characterization. If the pleural fluid re-accummulates, please resubmit a specimen for cytologic evaluation, if clinically appropriate. Pathologist ICD10: 02 J90 02 Morena Sanderson MD, Pathologist NPI- [id number] Roberto Carlos Mukherjee, Filling Winder ([facility]) 01 40 CC, RED, CLOUDY /LCS 10/21/1840 0000 Local FLAG LEGEND: L-Low Normal,H-High Normal,LL-Alert Low,HH-Alert High <-Panic Low,>-Panic High,A-Abnormal,AA-Critical Abnormal Performed at: 01 =Z [facility] [address], [place] [address] Hector Block MD, 02 [facility] [address] [place] [id number] Niya Pena MD, Performed at: 01 [facility] [address], [place], [place] [id number] MD Hector Block MD Phone: [phone]
--- NOTE | 2019-08-13 10:14 | PC.NURSE ---
Patient currently in procedure. Earlier this AM patient up to restroom with SBA, patient is A/Ox4. Experienced SOB during conversation. Denies chest pain, dizziness, or generalized pain at this time.
--- NOTE | 2019-08-13 10:33 | PM.PN.1 ---
Subjective Subjective Date Patient Seen: 08/13/19 Time Patient Seen: 10:36 Interval history: Rafy Renner is a 64-year-old male with past medical history of COPD (active smoker but trying to quit) who was admitted for acute hypoxemic respiratory failure Secondary to community-acquired pneumonia, COPD exacerbation, and new right-sided pleural effusion. He underwent a right-sided thoracentesis this morning, and we are currently awaiting test results from this. He still has a significant cough but reports mild improvement in his shortness of breath. He denies any fevers, chills, nausea, vomiting. he does have some mild abdominal pain when he coughs. His urine studies showed a urine sodium of 47, his UA was unremarkable, and urine osmolality is pending. Exam Vital Signs (past 8 hours): - 08/13/19 04:00 08/13/19 08:00 Temperature 97.3 F L 98.1 F Pulse Rate 92 H 91 H Respiratory Rate 15 22 Blood Pressure 133/81 141/79 H Pulse Oximetry 90 L 91 Oxygen Delivery Method Room Air Oxygen Flow Rate 0 Narrative Exam Narrative: GENERAL APPEARANCE: Chronically ill appearing male, pale, but in good spirits. SKIN: Inspection of the skin reveals no rashes, ulcerations or petechiae. HEENT: The sclerae were anicteric and conjunctivae were pink and moist. Extraocular movements were intact and pupils were equal, round with normal accommodation. External inspection of the ears and nose showed no scars, lesions, or masses. Lips, teeth, and gums showed normal mucosa. His dentition is poor. The oral mucosa, hard and soft palate, tongue and posterior pharynx were unremarkable. NECK: Supple and symmetric. There was no thyroid enlargement, and no tenderness, or masses were felt. CHEST: Normal AP diameter and normal contour without any kyphoscoliosis. LUNGS: Diminished breath sounds over the right lower lobe improved from previous, no wheezes this morning. CARDIOVASCULAR: There was a regular rate and rhythm without any murmurs, gallops, rubs. Peripheral pulses were 2+ and symmetric. ABDOMEN: Soft and nontender with normal bowel sounds. No ascites was noted. MUSCULOSKELETAL: There was no tenderness or effusions noted. Muscle strength and tone were normal. EXTREMITIES: No cyanosis, clubbing or edema. NEUROLOGIC: Alert and oriented x 3. Normal affect. Strength is +5/5 in the Upper Extremities and Lower Extremities Bilaterally. Sensation to touch was normal. Objective Labs Result Diagrams: 08/13/19 06:50 08/13/19 06:20 Labs: Laboratory Results - last 24 hr 08/12/19 08/12/19 08/12/19 10:25 10:25 10:25 WBC 8.6 RBC 4.09 L Hgb 12.1 L Hct 35.7 L MCV 87.2 MCH 29.5 MCHC 33.8 RDW 13.8 Plt Count 396 Neut % (Auto) 83.8 H Lymph % (Auto) 10.0 L [place] % (Auto) 4.6 Eos % (Auto) 0.8 L Baso % (Auto) 0.8 Neut # (Auto) 7200 H Lymph # (Auto) 900 L [place] # (Auto) 400 Eos # (Auto) 100 Baso # (Auto) 100 PT INR APTT ABG pH ABG pCO2 ABG pO2 ABG HCO3 ABG Total CO2 ABG O2 Saturation ABG Base Excess FiO2 Sodium 126 L Potassium 4.1 Chloride 89 L Carbon Dioxide 22 BUN 15 Creatinine 0.90 Estimated GFR > 60.0 BUN/Creatinine Ratio 16.7 Glucose 114 H Lactate Calcium 9.0 Magnesium 1.4 L Total Bilirubin 0.5 AST 27 ALT 13 L Alkaline Phosphatase 83 Total Creatine Kinase 54 L CK-MB (CK-2) TNP CK-MB (CK-2) Rel Index TNP Troponin I 0.061 H B-Natriuretic Peptide 261 H Total Protein 6.7 Albumin 3.6 Globulin 3.1 Albumin/Globulin Ratio 1.2 Procalcitonin Urine Color Urine Appearance Urine pH Ur Specific [place] Urine Protein Urine Glucose (UA) Urine Ketones Urine Occult Blood Urine Nitrate Urine Bilirubin Urine Urobilinogen Ur Leukocyte Esterase Urine RBC Urine WBC Ur Squamous Epith Cells Urine Bacteria Ur Culture Indicated? Ur Random Sodium Influenza A & B (PCR) 08/12/19 08/12/19 08/12/19 10:25 10:25 10:35 WBC RBC Hgb Hct MCV MCH MCHC RDW Plt Count Neut % (Auto) Lymph % (Auto) [place] % (Auto) Eos % (Auto) Baso % (Auto) Neut # (Auto) Lymph # (Auto) [place] # (Auto) Eos # (Auto) Baso # (Auto) PT INR APTT ABG pH 7.43 ABG pCO2 27.2 L ABG pO2 79 L ABG HCO3 18 L ABG Total CO2 19 L ABG O2 Saturation 96 ABG Base Excess -6.0 L FiO2 21 Sodium Potassium Chloride Carbon Dioxide BUN Creatinine Estimated GFR BUN/Creatinine Ratio Glucose Lactate 1.1 Calcium Magnesium Total Bilirubin AST ALT Alkaline Phosphatase Total Creatine Kinase CK-MB (CK-2) CK-MB (CK-2) Rel Index Troponin I B-Natriuretic Peptide Total Protein Albumin Globulin Albumin/Globulin Ratio Procalcitonin 0.07 Urine Color Urine Appearance Urine pH Ur Specific [place] Urine Protein Urine Glucose (UA) Urine Ketones Urine Occult Blood Urine Nitrate Urine Bilirubin Urine Urobilinogen Ur Leukocyte Esterase Urine RBC Urine WBC Ur Squamous Epith Cells Urine Bacteria Ur Culture Indicated? Ur Random Sodium Influenza A & B (PCR) 08/12/19 08/12/19 08/12/19 13:15 19:30 19:35 WBC RBC Hgb Hct MCV MCH MCHC RDW Plt Count Neut % (Auto) Lymph % (Auto) [place] % (Auto) Eos % (Auto) Baso % (Auto) Neut # (Auto) Lymph # (Auto) [place] # (Auto) Eos # (Auto) Baso # (Auto) PT INR APTT ABG pH ABG pCO2 ABG pO2 ABG HCO3 ABG Total CO2 ABG O2 Saturation ABG Base Excess FiO2 Sodium Potassium Chloride Carbon Dioxide BUN Creatinine Estimated GFR BUN/Creatinine Ratio Glucose Lactate Calcium Magnesium Total Bilirubin AST ALT Alkaline Phosphatase Total Creatine Kinase CK-MB (CK-2) CK-MB (CK-2) Rel Index Troponin I 0.052 H B-Natriuretic Peptide Total Protein Albumin Globulin Albumin/Globulin Ratio Procalcitonin Urine Color Urine Appearance Urine pH Ur Specific [place] Urine Protein Urine Glucose (UA) Urine Ketones Urine Occult Blood Urine Nitrate Urine Bilirubin Urine Urobilinogen Ur Leukocyte Esterase Urine RBC Urine WBC Ur Squamous Epith Cells Urine Bacteria Ur Culture Indicated? Ur Random Sodium 47 Influenza A & B (PCR) Negative 08/12/19 08/13/19 08/13/19 19:35 06:20 06:20 WBC RBC Hgb Hct MCV MCH MCHC RDW Plt Count Neut % (Auto) Lymph % (Auto) [place] % (Auto) Eos % (Auto) Baso % (Auto) Neut # (Auto) Lymph # (Auto) [place] # (Auto) Eos # (Auto) Baso # (Auto) PT 11.1 INR 1.0 APTT 30 ABG pH ABG pCO2 ABG pO2 ABG HCO3 ABG Total CO2 ABG O2 Saturation ABG Base Excess FiO2 Sodium 128 L Potassium 4.2 Chloride 97 L Carbon Dioxide 23 BUN 16 Creatinine 0.80 Estimated GFR > 60.0 BUN/Creatinine Ratio 20.0 Glucose 104 Lactate Calcium 8.5 Magnesium 1.6 Total Bilirubin AST ALT Alkaline Phosphatase Total Creatine Kinase CK-MB (CK-2) CK-MB (CK-2) Rel Index Troponin I B-Natriuretic Peptide Total Protein Albumin Globulin Albumin/Globulin Ratio Procalcitonin Urine Color Yellow Urine Appearance Clear Urine pH 7.0 Ur Specific [place] <=1.005 Urine Protein Negative Urine Glucose (UA) Negative Urine Ketones Negative Urine Occult Blood Negative Urine Nitrate Negative Urine Bilirubin Negative Urine Urobilinogen 0.2 Ur Leukocyte Esterase Negative Urine RBC 0-1/hpf Urine WBC 0-1/hpf Ur Squamous Epith Cells 0-1 /hpf Urine Bacteria None seen Ur Culture Indicated? Cult not indicated Ur Random Sodium Influenza A & B (PCR) 08/13/19 08/13/19 06:50 06:50 WBC 10.0 RBC 3.66 L Hgb 10.7 L Hct 31.9 L MCV 87.2 MCH 29.3 MCHC 33.6 RDW 13.8 Plt Count 370 Neut % (Auto) 85.3 H Lymph % (Auto) 9.5 L [place] % (Auto) 4.9 Eos % (Auto) 0.0 L Baso % (Auto) 0.3 Neut # (Auto) 8600 H Lymph # (Auto) 900 L [place] # (Auto) 500 Eos # (Auto) 0 Baso # (Auto) 0 PT INR APTT ABG pH ABG pCO2 ABG pO2 ABG HCO3 ABG Total CO2 ABG O2 Saturation ABG Base Excess FiO2 Sodium Potassium Chloride Carbon Dioxide BUN Creatinine Estimated GFR BUN/Creatinine Ratio Glucose Lactate Calcium Magnesium Total Bilirubin AST ALT Alkaline Phosphatase Total Creatine Kinase CK-MB (CK-2) CK-MB (CK-2) Rel Index Troponin I B-Natriuretic Peptide Total Protein Albumin Globulin Albumin/Globulin Ratio Procalcitonin < 0.05 Urine Color Urine Appearance Urine pH Ur Specific [place] Urine Protein Urine Glucose (UA) Urine Ketones Urine Occult Blood Urine Nitrate Urine Bilirubin Urine Urobilinogen Ur Leukocyte Esterase Urine RBC Urine WBC Ur Squamous Epith Cells Urine Bacteria Ur Culture Indicated? Ur Random Sodium Influenza A & B (PCR) Assessment & Plan Assessment & Plan narrative: Rafy Renner is a 64-year-old male with past medical history of COPD (active smoker but trying to quit) presented to the ED with shortness of breath, his x-ray shows evidence of multilobar pneumonia as well as a new right-sided pleural effusion, as well as changes consistent with COPD. He is admitted with acute hypoxemic respiratory failure likely secondary to community-acquired pneumonia with possible parapneumonic effusion and possible COPD exacerbation. 1. Acute hypoxemic respiratory failure -likely secondary to community-acquired multilobar pneumonia complicated by COPD exacerbation. He does have a new right-sided pleural effusion which was drained today, we will see what the pleural fluid study show. Flu swab was negative. -continue ceftriaxone and azithromycin at this time -follow up pleural fluid studies (culture, cell count, protein, LDH, glucose, cytology) -continue prednisone 40 mg x5 days 2. COPD exacerbation, acute on chronic -steroids as noted above -respiratory therapy, eval and treat - continue duonebs q6 per respiratory. -albuterol prn 3. Right pleural effusion, acute, present on admission - differential includes empyema / parapneumonic effusion, malignancy given patient's smoking history and hyponatremia which seems to suggest SIADH. - see workup as noted above. - if exudative effusion without organisms, consider CT chest to evaluate for lung mass 4. CAP, acute, present on admission - - continue antibiotics as noted above 5. Hyponatremia, chronic - patient appears to have chronic hyponatremia with prior NA of 125 in june of this year. He is asymptomatic at this time. Patient clinically appears euvolemic. Suspect an SIADH at this time due to urine Na >40, pending urine osm. UA was unremarkable. - follow up urine Osm - fluid restrict 6. Elevated troponin / Type II AL - troponin of 0.06 on admission, improved to 0.05 likely secondary to demand from acute hypoxemic respiratory failure. Code: full Dispo: remains inpatient Quality VTE Deep Vein Thrombosis/Pulmonary Embolism Present on Admission: No
[2019-08-13 10:56] LABS: Body Fluid Red Blood Cells 15487 /uL; Body Fluid Tot Nucleated Cells 1197 /uL
[2019-08-13 11:06] LABS: Glucose Body Fluid 100 mg/dL; LDH Body Fluid 495 U/L
[2019-08-13 11:07] LABS: Total Protein Body Fluid 3.3 g/dL
[2019-08-13] MEDS: ALBUTEROL/IPRATROPIUM 3 ML AMPUL INH ×2 (11:09→19:21)
[2019-08-13 11:12] LABS: Body Fluid Appearance CLOUDY; Body Fluid Clotted? NO CLOTS PRESENT; Body Fluid Color RED; Eosinophils Body Fluid 0 %; Mononuclear WBC Body Fluid 86 %; Other Cells Body Fluid 0 %; Polynuclear WBC Body Fluid 14 %
[2019-08-13] MEDS: HEPARIN 5,000 UNIT/ML VIAL 5000 UNIT SUBCUT ×2 (11:27→20:49)
[2019-08-13] MEDS: ACETAMINOPHEN 325 MG TABLET 650 MG PO ×2 (11:32→20:48)
--- NOTE | 2019-08-13 14:45 | CM.IDA ---
Initial DCP Assessment Note: Pt is a 64 yo male, resident of [place]. Pt admitted with acute hypoxemic respiratory failure, chronic COPD and active smoker, was off floor this AM for thoracentesis, results pending for concern of malignancy. PCP: Lili Schaeffer Payer: [facility] Reviewed chart. Met w/pt, explained SW role. Pt in good spirits, explains that he is indp and active at baseline. 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 Pt states I've been a bachelor for 20 years but keeps in close contact w/ ex /friend who currently lives on [address]. Son lives in [place]. Pt does not anticipate any DC needs from this [employer], he is appreciative for the visit. P: DC likely home when medically cleared w/family and friends to support as needed. This P[employer]ED WALL [employer]EM[employer] available if DC needs or concerns arise. RAMONE Braxton Discharge Planning/Care Management CM Discharge Assessment Start: 08/13/19 14:40 Freq: Status: Active Protocol: Document 08/13/19 14:41 JOSHUA (Rec: 08/13/19 14:45 [email or web address] [id number]) Discharge Planning Assessment Assigned [employer] Entry RAMONE Waldron Advance Directives? No History Provided By Patient Prior Living Arrangements House Household Members none Independent with ADL's Yes Is patient alert and oriented? Yes Comment Works at [employer] Barriers to Discharge No Comment Likely home w/o barriers Discharge Plan Home Transportation Arrangement Family Referrals Initiated None needed Additional Comment at this time Review Status In Process
[2019-08-13] MEDS: CEFTRIAXONE 1 GM/50 ML FROZ.PIGGY IV (16:51)
--- NOTE | 2019-08-13 17:31 | DI.US.S_ITS ---
PROCEDURE: US THORACENTESIS INDICATIONS: RIGHT PLEURAL EFFUSION FOR FLUID STUDIES/ETIOLOGY . TECHNIQUE: The indications, alternatives, benefits, risks, and complications of the procedure were explained to the patient. Written informed consent was obtained and placed in the chart. The chest was examined sonographically, and an appropriate site was chosen for thoracentesis. The skin was prepared and draped in the usual sterile fashion, and 1% lidocaine was infiltrated from the skin down through the pleural surface. A 19-gauge catheter-covered needle was then introduced into the pleural space, the catheter was advanced and the needle was withdrawn, and thereafter pleural fluid was aspirated. The catheter was then removed and a dressing was applied. COMPARISON: None. FINDINGS: Access site: Right hemithorax. Needle: One-Step centesis catheter with introducer needle. Fluid volume and description: 1900 mL of blood-tinged pleural fluid. Fluid sent for diagnostic testing: Pleural fluid specimen sent to laboratory for evaluation per clinician's orders. Medications: 1% lidocaine for local anaesthesia. Complications: None; post-procedural chest radiograph is pending to assess for pneumothorax. IMPRESSION: Successful ultrasound-guided thoracentesis. Dictated by: Javy Iverson M.D. on 08/13/2019 at 10:36 Approved by: Javy Iverson M.D. on 08/13/2019 at 10:37
[2019-08-13] MEDS: AZITHROMYCIN 500 MG in DEXTROSE 5% IN WATER 250 ML IV (18:04)
[2019-08-13] MEDS: TRAZODONE 50 MG TABLET PO (22:32)
--- NOTE | 2019-08-13 23:57 | PC.NURSE ---
Addendum entered by Selvin Suggs R.N. 08/14/19 04:33: 0430: Pt up to void. He stated to FEDERAL APPELLATE CLERK that he has a number of problems that nobody is addressing: He states that he has painful urination, and thinks he has a UTI; pain in his abdomen; pain in lt knee. This information was reported to JOANNA Bradford. New orders are to obtain urine for a UA. Original Note: Fire Safety Director Note: 2350: Awake, up to bathroom (bed alarm sounded). Encouraged pt to call nurse when he wants to get up. Pt had small formed stool, and voided. IV in place in rt wrist. He denies pain or discomfort. Bandaid on rt side of back is cdi.
[2019-08-14] VITALS (10 sets, daily range): BP systolic 122–155; BP diastolic 77–88; PULSE 82–103; RESP 17–26; TEMP 36.8–37.5; O2SAT 91–97
[2019-08-14] MEDS: ACETAMINOPHEN 325 MG TABLET 650 MG PO ×3 (02:40→20:58)
[2019-08-14 06:17] LABS: Bacteria Urine None Seen; RBC Urine None Seen (0-5/HPF); WBC Urine None Seen (0-5/HPF)
[2019-08-14 06:18] LABS: Appearance Urine UA CLEAR; Bilirubin Urine UA NEGATIVE (NEGATIVE); Color Urine UA YELLOW; Glucose Urine UA NEGATIVE (Negative); Ketones Urine UA NEGATIVE (NEGATIVE); Leukocyte Esterase Urine UA NEGATIVE (NEGATIVE); Nitrite Urine UA NEGATIVE (Negative); Occult Blood Urine UA NEGATIVE (Negative); Protein Urine UA NEGATIVE (Negative); Urobilinogen Urine UA 0.2 E.U./dL (0.2)
[2019-08-14 06:26] LABS: Culture Indicated Urine Cult Not Indicated; Urine Comments Microscopic Normal
[2019-08-14 07:29] LABS: Add Manual Diff / Slide Review NO; Basophils Absolute Auto 0 /uL (0-100); Basophils Percent Auto 0.1 % (0-2); Eosinophils Absolute Auto 0 /uL (0-450); Eosinophils Percent Auto 0.3 % (2-4); Hematocrit 37.7 % (41-53); Hemoglobin 12.7 g/dL (13.5-17.5); Lymphocytes Absolute Auto 1100 /uL (1100-4500); Lymphocytes Percent Auto 12.3 % (25-40); Mean Corpuscular HGB Conc 33.6 % (30-36); Mean Corpuscular Hemoglobin 29.6 PG (26-34); Mean Corpuscular Volume 87.9 fL (80-100); Monocytes Absolute Auto 700 /uL (0-900); Monocytes Percent Auto 8.6 % (3-14); Neutrophils Absolute Auto 6800 /uL (1500-7000); Neutrophils Percent Auto 78.7 % (50-75); Platelet Count 426 X10^3/uL (150-400); Red Blood Cell Count 4.29 X10^6/uL (4.5-5.9); Red Cell Distribution Width 13.9 % (11.6-14.8); White Blood Cell Count 8.6 X10^3/uL (4.5-11.0)
[2019-08-14 07:37] LABS: INR 0.9 (0.9-1.3); Prothrombin Time 10.6 SECONDS (10.1-12.7)
[2019-08-14 07:39] LABS: PTT Partial Thromboplastin Tim 29 SECONDS (26.4-36.2)
[2019-08-14 07:43] LABS: BUN Creatinine Ratio 17.8 (6-22); Blood Urea Nitrogen 16 mg/dL (9-20); Calcium 9.6 mg/dL (8.4-10.2); Carbon Dioxide 28 mmol/L (22-32); Chloride 92 mmol/L (98-107); Estimated Glomerular Filt Rate > 60.0 mL/min (>60); Glucose 86 mg/dL (80-110); HEMOLYSIS < 15 (0-50); Magnesium 1.7 mg/dL (1.6-2.3); Potassium 4.6 mmol/L (3.4-5.1); Sodium 130 mmol/L (137-145)
[2019-08-14 07:57] LABS: Lactate Dehydrogenase 470 U/L (313-618)
[2019-08-14] MEDS: MORPHINE 2 MG/ML INJ IV (08:22)
[2019-08-14] MEDS: HEPARIN 5,000 UNIT/ML VIAL 5000 UNIT SUBCUT ×2 (08:23→20:59)
[2019-08-14] MEDS: predniSONE 20 MG TABLET 40 MG PO (08:23)
[2019-08-14] MEDS: ALBUTEROL 2.5 MG/3 ML NEB (ADULT) INH (09:33)
[2019-08-14] MEDS: KETOROLAC 10 MG TABLET PO ×2 (11:46→19:00)
--- NOTE | 2019-08-14 13:24 | PC.NURSE ---
Patient resting in bed with eyes closed. Breathing is unlabored, catheter is patent and draining clear yellow urine.
[2019-08-14] MEDS: ALBUTEROL/IPRATROPIUM 3 ML AMPUL INH ×2 (14:47→19:47)
[2019-08-14] MEDS: CEFTRIAXONE 1 GM/50 ML FROZ.PIGGY IV (16:15)
--- NOTE | 2019-08-14 17:15 | P.PN_ITS ---
Subjective Subjective Date Patient Seen: 08/14/19 Time Patient Seen: 17:15 Interval history: Rafy Renner is a 64-year-old male with past medical history of COPD (active smoker but trying to quit) who was admitted for acute hypoxemic respiratory failure Secondary to community-acquired pneumonia, COPD exacerbation, and new right-sided pleural effusion. He underwent a right-sided thoracentesis yesterday, which showed an exudate of effusion given his LDH ratio and by appearance as the drainage was red tinged. Gram stain was negative but cultures are pending. Cytology was sent. This morning he had some lower abdominal pain and reported difficulty voiding. He voided 100 and his postvoid residual was 600, a Steward catheter was inserted for urinary retention. He was started on Flomax. He has chronic back pain which seems to be worsened while he is in the hospital, he received morphine yesterday. Exam Vital Signs (past 8 hours): - 08/14/19 09:41 08/14/19 11:58 08/14/19 14:48 Temperature 98.2 F Pulse Rate 82 90 82 Respiratory Rate 22 26 H 20 Blood Pressure 151/82 H Pulse Oximetry 97 93 97 08/14/19 15:20 Temperature 98.6 F Pulse Rate 97 H Respiratory Rate 19 Blood Pressure 153/88 H Pulse Oximetry 91 Fraction of Inspired Oxygen 21 Oxygen Delivery Method Room Air Oxygen Flow Rate 0 Narrative Exam Narrative: GENERAL APPEARANCE: Chronically ill appearing male, pale, but in good spirits. Mildly groggy this morning after morphine. SKIN: Inspection of the skin reveals no rashes, ulcerations or petechiae. HEENT: The sclerae were anicteric and conjunctivae were pink and moist. Extraocular movements were intact and pupils were equal, round with normal accommodation. External inspection of the ears and nose showed no scars, lesions, or masses. Lips, teeth, and gums showed normal mucosa. His dentition is poor. The oral mucosa, hard and soft palate, tongue and posterior pharynx were unremarkable. NECK: Supple and symmetric. There was no thyroid enlargement, and no tenderness, or masses were felt. CHEST: Normal AP diameter and normal contour without any kyphoscoliosis. LUNGS: Mild expiratory wheezing (missed his duoneb treatments this AM), no rhonchi or rales on exam. CARDIOVASCULAR: There was a regular rate and rhythm without any murmurs, gallops, rubs. Peripheral pulses were 2+ and symmetric. ABDOMEN: Soft and nontender with normal bowel sounds. No ascites was noted. MUSCULOSKELETAL: There was no tenderness or effusions noted. Muscle strength and tone were normal. EXTREMITIES: No cyanosis, clubbing or edema. Mild paraspinal muscle tenderness l ower back. NEUROLOGIC: Alert and oriented x 3. Normal affect. Strength is +5/5 in the Upper Extremities and Lower Extremities Bilaterally. Sensation to touch was normal. Objective Labs Result Diagrams: 08/14/19 07:04 08/14/19 07:04 Labs: Laboratory Results - last 24 hr 08/14/19 08/14/19 08/14/19 05:50 07:04 07:04 WBC 8.6 RBC 4.29 L Hgb 12.7 L Hct 37.7 L MCV 87.9 MCH 29.6 MCHC 33.6 RDW 13.9 Plt Count 426 H Neut % (Auto) 78.7 H Lymph % (Auto) 12.3 L [place] % (Auto) 8.6 Eos % (Auto) 0.3 L Baso % (Auto) 0.1 Neut # (Auto) 6800 Lymph # (Auto) 1100 [place] # (Auto) 700 Eos # (Auto) 0 Baso # (Auto) 0 PT INR APTT Sodium 130 L Potassium 4.6 Chloride 92 L Carbon Dioxide 28 BUN 16 Creatinine 0.90 Estimated GFR > 60.0 BUN/Creatinine Ratio 17.8 Glucose 86 Calcium 9.6 Magnesium 1.7 Lactate Dehydrogenase Urine Color Yellow Urine Appearance Clear Urine pH 7.0 Ur Specific [place] 1.010 Urine Protein Negative Urine Glucose (UA) Negative Urine Ketones Negative Urine Occult Blood Negative Urine Nitrate Negative Urine Bilirubin Negative Urine Urobilinogen 0.2 Ur Leukocyte Esterase Negative Urine RBC None seen Urine WBC None seen Urine Bacteria None seen Ur Culture Indicated? Cult not indicated Micro UA Comment Microscopic normal 08/14/19 08/14/19 07:04 07:04 WBC RBC Hgb Hct MCV MCH MCHC RDW Plt Count Neut % (Auto) Lymph % (Auto) [place] % (Auto) Eos % (Auto) Baso % (Auto) Neut # (Auto) Lymph # (Auto) [place] # (Auto) Eos # (Auto) Baso # (Auto) PT 10.6 INR 0.9 APTT 29 Sodium Potassium Chloride Carbon Dioxide BUN Creatinine Estimated GFR BUN/Creatinine Ratio Glucose Calcium Magnesium Lactate Dehydrogenase 470 Urine Color Urine Appearance Urine pH Ur Specific [place] Urine Protein Urine Glucose (UA) Urine Ketones Urine Occult Blood Urine Nitrate Urine Bilirubin Urine Urobilinogen Ur Leukocyte Esterase Urine RBC Urine WBC Urine Bacteria Ur Culture Indicated? Micro UA Comment Assessment & Plan Assessment & Plan narrative: Rafy Renner is a 64-year-old male with past medical history of COPD (active smoker but trying to quit) presented to the ED with shortness of breath, his x-ray shows evidence of multilobar pneumonia as well as a new right-sided pleural effusion, as well as changes consistent with COPD. He is admitted with acute hypoxemic respiratory failure likely secondary to community-acquired pneumonia with possible parapneumonic effusion and possible COPD exacerbation. 1. Acute hypoxemic respiratory failure, present on admission, improving -likely secondary to community-acquired multilobar pneumonia complicated by COPD exacerbation. He does have a new right-sided pleural effusion which was drained today, we will see what the pleural fluid study show. Flu swab was negative. -continue ceftriaxone and azithromycin at this time -pleural studies consistent with an exudative effusion, see management below -continue prednisone 40 mg x5 days 2. COPD exacerbation, acute on chronic -steroids as noted above -respiratory therapy, eval and treat - continue duonebs q6 per respiratory. -albuterol prn 3. Right pleural effusion, acute, present on admission - differential includes parapneumonic effusion, malignancy given patient's smoking history and hyponatremia which seems to suggest SIADH. - see workup as noted above. -consider CT chest to evaluate for possible lung mass, however this med may also be done as an outpatient 4. CAP, acute, present on admission - - continue antibiotics as noted above 5. Hyponatremia, chronic - patient appears to have chronic hyponatremia with prior NA of 125 in june of this year. He is asymptomatic at this time. Patient clinically appears euvolemic. Suspect an SIADH at this time due to urine Na >40, pending urine osm. UA was unremarkable. Patient was placed on a fluid restriction on 08/13, his sodium has improved today to 130. - follow up urine Osm - continue to fluid restrict 6. Elevated troponin / Type II OR - troponin of 0.06 on admission, improved to 0.05 likely secondary to demand from acute hypoxemic respiratory failure. 7. BPH, with urinary retention -patient voided 100 mL and had a 600 cc postvoid residual. A Steward catheter was placed and he was started on Flomax. - continue flomax, consider trial of void prior to discharge or urology outpatient follow up. Code: full Dispo: remains inpatient Quality VTE Deep Vein Thrombosis/Pulmonary Embolism Present on Admission: No
[2019-08-14] MEDS: TAMSULOSIN 0.4 MG CAPSULE PO (19:00)
[2019-08-14] MEDS: AZITHROMYCIN 500 MG in DEXTROSE 5% IN WATER 250 ML IV (19:00)
[2019-08-14] MEDS: TRAZODONE 50 MG TABLET PO (20:59)
[2019-08-14 22:43] LABS: Adenovirus Not Detected (Not Detect); Bordetella pertussis Not Detected (Not Detect); Chlamydophila pneumoniae Not Detected (Not Detect); Coronavirus 229E Not Detected (Not Detect); Coronavirus HKU1 Not Detected (Not Detect); Coronavirus NL 63 Not Detected (Not Detect); Coronavirus OC43 Not Detected (Not Detect); Human Metapneumovirus Not Detected (Not Detect); Human Rhinovirus/Enterovirus Not Detected (Not Detect); Influenza A Not Detected (Not Detect); Influenza B Not Detected (Not Detect); Mycoplasma pneumoniae Not Detected (Not Detect); Parainfluenza Virus 1 Not Detected (Not Detect); Parainfluenza Virus 2 Not Detected (Not Detect); Parainfluenza Virus 3 Not Detected (Not Detect); Parainfluenza Virus 4 Not Detected (Not Detect); Respiratory Syncytial Virus Not Detected (Not Detect)
[2019-08-15] VITALS (12 sets, daily range): BP systolic 136–152; BP diastolic 74–94; PULSE 84–107; RESP 16–24; TEMP 36.3–36.9; O2SAT 92–94
[2019-08-15] MEDS: MORPHINE 2 MG/ML INJ IV ×2 (00:04→08:41)
[2019-08-15] MEDS: KETOROLAC 10 MG TABLET PO ×3 (00:58→14:29)
[2019-08-15] MEDS: ACETAMINOPHEN 325 MG TABLET 650 MG PO ×2 (06:07→14:30)
[2019-08-15 06:31] LABS: Add Manual Diff / Slide Review NO; Basophils Absolute Auto 0 /uL (0-100); Basophils Percent Auto 0.2 % (0-2); Eosinophils Absolute Auto 100 /uL (0-450); Eosinophils Percent Auto 0.8 % (2-4); Hematocrit 32.6 % (41-53); Hemoglobin 11.4 g/dL (13.5-17.5); Lymphocytes Absolute Auto 1300 /uL (1100-4500); Lymphocytes Percent Auto 14.4 % (25-40); Mean Corpuscular HGB Conc 34.9 % (30-36); Mean Corpuscular Hemoglobin 30.2 PG (26-34); Mean Corpuscular Volume 86.6 fL (80-100); Monocytes Absolute Auto 700 /uL (0-900); Monocytes Percent Auto 7.5 % (3-14); Neutrophils Absolute Auto 7100 /uL (1500-7000); Neutrophils Percent Auto 77.1 % (50-75); Platelet Count 380 X10^3/uL (150-400); Red Blood Cell Count 3.77 X10^6/uL (4.5-5.9); Red Cell Distribution Width 14.1 % (11.6-14.8); White Blood Cell Count 9.2 X10^3/uL (4.5-11.0)
[2019-08-15 06:36] LABS: PTT Partial Thromboplastin Tim 28 SECONDS (26.4-36.2)
[2019-08-15 06:37] LABS: Blood Urea Nitrogen 20 mg/dL (9-20); Calcium 8.9 mg/dL (8.4-10.2); Carbon Dioxide 26 mmol/L (22-32); Chloride 92 mmol/L (98-107); Estimated Glomerular Filt Rate > 60.0 mL/min (>60); Glucose 85 mg/dL (80-110); HEMOLYSIS < 15 (0-50); Magnesium 1.7 mg/dL (1.6-2.3); Potassium 4.5 mmol/L (3.4-5.1); Sodium 126 mmol/L (137-145)
--- NOTE | 2019-08-15 07:23 | DI.CT.S_ITS ---
PROCEDURE: CT CHEST WO CON INDICATIONS: PNA, r/o malignancy TECHNIQUE: Noncontrast 5 mm thick sections acquired from the pulmonary apices to the posterior costophrenic angles. 1 mm lung window, 5 mm thick coronal and sagittal and 7 mm axial MIP reformats were then acquired. For radiation dose reduction, the following was used: automated exposure control, adjustment of mA and/or kV according to patient size. COMPARISON: [facility], CR, XR CHEST 1V, 08/13/2019, 10:04. FINDINGS: Image quality: Excellent. Lungs and pleura: Moderate to large partially loculated right pleural effusion is seen. There is moderate to severe centrilobular emphysema. Extensive air space consolidations and groundglass opacities are seen throughout right upper, middle and lower lobes with near complete atelectasis of right middle and lower lobes. Distal trachea and left sided airway is patent. There is occlusion of distal right mainstem bronchus concerning for right hilar mass compressing on distal right mainstem bronchus. Endoscopic correlation is recommended. Small patchy infiltrate/atelectasis scattered in anteromedial and posterior aspect of left upper lobe. Dependent atelectasis in posterior aspect of left lower lobe is seen. No left-sided pleural effusion. No pneumothorax. Mediastinum: Heart size is mildly enlarged. Small pericardial effusion is seen and measures up to 1.1 cm in thickness anterior to right ventricle. Prominent mediastinal lymph nodes are seen measures up to 1.4 cm in short axis diameter a right paratracheal space. Right hilar lymphadenopathy/mass is likely present. Thoracic aorta and central pulmonary arteries are normal in size. Esophagus is normal in caliber. No hiatal hernia. Bones and chest wall: Ill-defined area of mixed lytic and sclerotic appearance involving upper sternum and bilateral posterior upper ribs are seen. No fracture or dislocation. No vertebral body compression fractures. No axillary or supraclavicular adenopathy by size criteria. Thyroid gland is within normal limits. Abdomen: Moderate amount of ascites fluid is seen in upper abdomen. No gross discrete lesion is noted in visualized portion of liver and spleen. Diffuse nodular appearance of bilateral adrenal glands are seen. IMPRESSION: 1. Finding is highly suspicious for right endotracheal lesion a right hilar mass compressing/occluding distal right mainstem bronchus with near complete atelectasis of right middle lobe and right lower lobe. 2. Moderate to advanced centrilobular emphysema. Moderate to large partially loculated right pleural effusion. Extensive infiltrate/atelectasis throughout left lung field. Scattered patchy infiltrate/atelectasis in left lung field as above. No pneumothorax. 3. Prominent mediastinal lymph nodes concerning for metastatic lymphadenopathy. Mild cardiomegaly and small pericardial effusion. 4. Moderate ascites in upper abdomen. Diffuse nodular thickening of bilateral adrenal glands. Dictated by: Shiva Neville M.D. on 08/15/2019 at 9:29 Approved by: Shiva Neville M.D. on 08/15/2019 at 9:42
[2019-08-15] MEDS: ALBUTEROL/IPRATROPIUM 3 ML AMPUL INH ×3 (08:27→19:29)
[2019-08-15] MEDS: HEPARIN 5,000 UNIT/ML VIAL 5000 UNIT SUBCUT ×2 (08:41→22:10)
[2019-08-15] MEDS: TAMSULOSIN 0.4 MG CAPSULE PO (08:42)
[2019-08-15] MEDS: predniSONE 20 MG TABLET 40 MG PO (08:43)
[2019-08-15] MEDS: NICOTINE 7 MG PATCH TOP (08:43)
--- NOTE | 2019-08-15 12:15 | P.PN_ITS ---
Subjective Subjective Date Patient Seen: 08/15/19 Interval history: Rafy Renner is a 64-year-old male with past medical history of COPD and tobacco dependence but actively trying to quit who presented to the ED with progressive worsening shortness of breath. The patient is resting in bed comfortably. He has mild conversational dyspnea. He is in no acute distress. Discussed CT chest findings in detail and further workup of lung mass. He continues to endorse shortness of breath and back pain that is controlled with narcotics. He also reports generalized weakness and fatigue. He has no other complaints and denies headache, sore throat, chest pain, abdominal pain, nausea, vomiting, fever, chills, dysuria, diarrhea or constipation. He is voiding and eliminating without difficulty. He is up ambulating with assistance. Exam Vital Signs (past 8 hours): - 08/15/19 04:30 08/15/19 04:49 08/15/19 07:52 Temperature 98.1 F 97.4 F L Pulse Rate 97 H 94 H Respiratory Rate 24 20 Blood Pressure 150/94 H 152/82 H Pulse Oximetry 93 93 92 08/15/19 08:05 08/15/19 08:27 08/15/19 11:20 Temperature 98.4 F Pulse Rate 84 97 H Respiratory Rate 20 18 Blood Pressure 136/74 Pulse Oximetry 92 94 93 Fraction of Inspired Oxygen 21 Oxygen Delivery Method Room Air Oxygen Flow Rate 0 Narrative Exam Narrative: General: Older cachectic male lying in bed and in no acute distress, appears ol sarah than stated age in chronically ill, tearful as expected and appropriately interactive. HEENT: Normocephalic, atraumatic. External ears without defect. Pupils equal, round, and reactive to light. Anicteric sclerae, moist conjunctivae, and no lid lag. Neck: Supple with full range of motion. No lymphadenopathy or thyromegaly. Cardiovascular: Regular rate and rhythm without murmurs, rubs, or gallops appreciated. Pulmonary: Diminished on right side with scattered rhonchi throughout. No whe ezes or crackles. Conversational dyspnea present with use of accessory muscles. Abdomen: Soft, scaphoid, nontender, nondistended. No hepatosplenomegaly or masses appreciated. Extremities: No clubbing, cyanosis, or edema. Skin: Normal temperature, turgor, and texture; no rash, ulcers, or subcutaneous nodules appreciated. Neurological: Cranial nerves grossly intact. Psychiatric: Depressed mood and tearful as anticipated. Normal affect. Alert and oriented to person, place, and time. Objective Labs Result Diagrams: 08/15/19 06:10 08/15/19 06:10 Labs: Laboratory Results - last 24 hr 08/14/19 08/15/19 08/15/19 21:25 06:10 06:10 WBC 9.2 RBC 3.77 L Hgb 11.4 L Hct 32.6 L MCV 86.6 MCH 30.2 MCHC 34.9 RDW 14.1 Plt Count 380 Neut % (Auto) 77.1 H Lymph % (Auto) 14.4 L Lee % (Auto) 7.5 Eos % (Auto) 0.8 L Baso % (Auto) 0.2 Neut # (Auto) 7100 H Lymph # (Auto) 1300 Lee # (Auto) 700 Eos # (Auto) 100 Baso # (Auto) 0 PT INR APTT Sodium 126 L Potassium 4.5 Chloride 92 L Carbon Dioxide 26 BUN 20 Creatinine 1.00 Estimated GFR > 60.0 BUN/Creatinine Ratio 20.0 Glucose 85 Calcium 8.9 Magnesium 1.7 Chlamy pneumoniae PCR Not detected Adenovirus (PCR) Not detected B.parapertussis DNA PCR Not detected Coronavirus OC43 (PCR) Not detected Coronavirus HKU1 (PCR) Not detected Coronavirus 229E (PCR) Not detected Coronavirus NL63 (PCR) Not detected Human Metapneumovir PCR Not detected Influenza Type A (PCR) Not detected Influenza Type B (PCR) Not detected M. pneumoniae (PCR) Not detected Parainfluenza 1 (PCR) Not detected Parainfluenza 2 (PCR) Not detected Parainfluenza 3 (PCR) Not detected Parainfluenza 4 (PCR) Not detected RSV (PCR) Not detected Entero/Rhino (PCR) Not detected 08/15/19 06:10 WBC RBC Hgb Hct MCV MCH MCHC RDW Plt Count Neut % (Auto) Lymph % (Auto) Lee % (Auto) Eos % (Auto) Baso % (Auto) Neut # (Auto) Lymph # (Auto) Lee # (Auto) Eos # (Auto) Baso # (Auto) PT 11.0 INR 1.0 APTT 28 Sodium Potassium Chloride Carbon Dioxide BUN Creatinine Estimated GFR BUN/Creatinine Ratio Glucose Calcium Magnesium Chlamy pneumoniae PCR Adenovirus (PCR) B.parapertussis DNA PCR Coronavirus OC43 (PCR) Coronavirus HKU1 (PCR) Coronavirus 229E (PCR) Coronavirus NL63 (PCR) Human Metapneumovir PCR Influenza Type A (PCR) Influenza Type B (PCR) M. pneumoniae (PCR) Parainfluenza 1 (PCR) Parainfluenza 2 (PCR) Parainfluenza 3 (PCR) Parainfluenza 4 (PCR) RSV (PCR) Entero/Rhino (PCR) Assessment & Plan Assessment & Plan narrative: Rafy Renner is a 64-year-old male with past medical history of COPD and tobacco dependence but actively trying to quit who presented to the ED with progressive worsening shortness of breath. 1. Acute hypoxemic respiratory failure, present on admission. Resolved. -Secondary to right lung mass, community-acquired pneumonia, new right-sided pleural effusion and COPD exacerbation. -Continue supplemental oxygen to keep oxygen saturation 88-92%. Currently off oxygen. 2. Newly diagnosed right hilar/lung mass, present on admission. Active. -CT chest without contrast demonstrated highly suspicious for right endotracheal lesion and right hilar mass compressing/occluding distal right mainstem bronchus with near complete atelectasis of right middle lobe and right lower lobe. Prominent mediastinal lymph nodes concerning for metastatic lymphadenopathy. Mild cardiomegaly and small pericardial effusion. -Discussed findings in detail with the patient and his ex-. Plan for expedited pulmonary evaluation and likely bronchoscopy for tissue diagnosis. Discussed case with on-call energy systems laboratory director at [facility] Dr. Diaz who kindly helped to expedite referral/consultation. 3. Acute multilobar and likely post-obstructive bacterial pneumonia, present on admission. Resolving. -Chest x-ray demonstrated worsening of diffuse right lung parenchymal opacity with consolidation in the right infrahilar region and hyperexpanded left lung with a small left lower lobe consolidation. -Respiratory PCR negative. Blood cultures x 2 have no growth to date. -Continue ceftriaxone 1 g IV daily and completed azithromycin x 3 doses. -Continue prednisone 40 mg x5 days. 4. Right pleural effusion, acute, present on admission. Stable. -Differential includes lung malignancy, parapneumonic effusion, and hyponatremia which seems to suggest SIADH. -Pleural studies consistent with an exudative effusion -Recommend repeat chest x-ray and may consider CT chest to evaluate for possible malignancy in 4-6 weeks. 5. Acute COPD exacerbation, present on admission. Resolving. -Continue prednisone 40 mg x5 days. -Continue Mucinex 1200 mg twice daily. -Consulted respiratory therapy for evaluation and treatment. Continue duonebs every 6 hours while awake and albuterol every 2 hours as needed. Continue acapella 10 times an hour while awake and after each nebulizer. 6. Hyponatremia, chronic, present on admission. Stable. -Patient appears to have chronic hyponatremia with prior sodium of 125 in 06/2019. He is asymptomatic at this time. Patient clinically appears euvolemic. Suspect SIADH at this time due to urine Na >40 with normal urine osmolality and underlying lung malignancy. UA was unremarkable. -Continue fluid restriction of 1.5 L daily as sodium level has improved. 7. Acute elevated troponin / Type II ID, present on admission. Resolved. -Secondary to demand ischemia from acute hypoxemic respiratory failure. -Troponin of 0.06 on admission and trended down to 0.05 and resolving with improvement in oxygenation. No need to further trend. 8. BPH, with urinary retention, not present on admission. Active. -Patient voided 100 mL and had a 600 cc post-void residual for which a Steward catheter was placed and he was started on Flomax. -Continue tamsulosin 0.4 mg daily. Plan for void trial prior to discharge. 9. Tobacco dependence, chronic, present on admission. Stable. -Counseled patient on smoking cessation and actively trying to quit. -Continue nicotine patch as needed for nicotine withdraw. 10. Protein calorie malnutrition, likely acute on chronic, present on admission. Active. -Secondary to underlying malignancy. -Ordered dietitian consultation, pending. Code: Full Disposition: Patient likely to discharge home with home health next 1-2 days depending on improvement in his overall strength. Quality VTE Deep Vein Thrombosis/Pulmonary Embolism Present on Admission: No
--- NOTE | 2019-08-15 15:41 | CM.DPC ---
DCP Cont: According to Dr Recio, CT scan found a large lung mass, pt made aware and ex Shazia present for this discussion. Dr Recio will ask for a referral to pulmonary likely for lung biopsy. Dr Recio asks this MIXER AND BLENDER to follow up with pt/family re: DC plan, DC expected Sunday. Dr Recio states PT has been ordered because pt states I haven't walked in days (?) Met w/pt and his son Stoney, pt says re: ex Shazia I had to send her away. Son Stoney tearful as he entered the room. This MIXER AND BLENDER given permission to speak in front of son Stoney. Had lengthy conversation, pt states his father of lung cancer and being a smoker for as many years as he has been, he has thought about the risk of lung cancer often. Pt wants to go home w/HH if it's available to him, no agency preference. Pt also wants to follow up with a lung biopsy to get definitive information about diagnosis and treatment options before considering hospice. Son will assist pt this weekend and may be able to take time off next week, son works in [place]. Ex Shazia has MS and is not functionally capable of assisting pt once home. Placed call to [facility], gave referral to [place]. Clinical packet still needs to be faxed to [facility] to include a signed F2F for RN/PT/ONLINE MARKETING COORDINATOR/MIXER AND BLENDER. [facility] aware an MIXER AND BLENDER would be very helpful to this pt. P: DC expected Sunday, home w/family and [facility]. Call [facility] on Sunday to confirm date of opening and fax packet, F2F needed with [facility] ? RAMOEN Braxton
--- NOTE | 2019-08-15 15:54 | OT.IP.EVAL ---
Current Diagnoses Acute respiratory failure with hypoxia (08/12/19) Past Medical History (Last Updated 07/30/19 @ 13:15 by JOANNA Schafer) Community acquired pneumonia (Acute 06/2019) COPD (chronic obstructive pulmonary disease) (Acute) Occupational Therapy Inpatient Evaluation/Re-Eval M1 PT/OT-IP Prior Functional Status Start: 08/15/19 17:16 Freq: NEEDED Status: Active Protocol: Document 08/15/19 17:44 [facility] (Rec: 08/15/19 18:34 [facility] [id number]) Medical Review Prior Functional Status Medical History Reviewed Yes Diet/Fluid Consistency Regular,Thin Liquids Communication Independent. Mobility and Gait Independent with no device. Activities of Daily Living and IADL's Pt states completely independent with all ADL and IADl needs. 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 Social History Household Members none Living Arrangements House Number of Floors (Floors) One Floor Number of Stairs To Enter/Railing? 3 steps from the front door with no handrail. One step from the garage with no handrail. 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 Pt's ex- just picked up [facility] today for pt. M2 OT-IP Current Condition Start: 08/15/19 17:16 Freq: Status: Active Protocol: Document 08/15/19 17:44 [facility] (Rec: 08/15/19 18:34 [facility] [id number]) Occupational Therapy Current Condition Current Condition Evaluation Date 08/15/19 Treatment Diagnosis Acute hypoxemic respiratory failure secondary to PNA Diagnosis Onset Date 08/12/19 Weight Bearing Status Weight Bearing Status Weight Bear as Tolerated M3 OT- IP Subjective and Pain Start: 08/15/19 17:16 Freq: Status: Active Protocol: Document 08/15/19 17:44 [facility] (Rec: 08/15/19 18:34 [facility] [id number]) OT- Subjective Occupational Therapy Visit Type Type Initial Evaluation Visit Start Time 15:54 Visit Stop Time 16:59 Total Visit Minutes 65 Occupational Therapy Visit Comments Patient Comments Pt very talkative and willing to get up. Initially pt's son in the room for OT /PT eval. Patient/Caregiver Goals Pt wanting to go home. OT Pain Assessment Pain When Pain Assessed At Rest Pain Present Pain Present Pain Reported Location Back Intensity 8 Scale Used Numeric (1 - 10) M4 OT- IP ADL's Start: 08/15/19 17:16 Freq: Status: Active Protocol: Document 08/15/19 17:44 [facility] (Rec: 08/15/19 18:34 [facility] [id number]) OT [id number] General Evaluation Self-Feeding Ability Independent OT ADL-Grooming General Evaluation Grooming Ability Independent Comments OT Grooming Comments SBA while standing to do grooming needs. OT ADL-Oral Care General Eval Oral Care Ability Independent OT ADL-Dressing General Eval Lower Body Dressing Ability Minimal Assistance Areas Needing Assistance Shoes Comments OT Dressing Comments Pt able to independently laura and tie his right boot. Pt's O2 dropped to 81% and needing one minute to recovery to 92% on RA. Pt therefore needing assist to complete to tie left shoe. OT ADL-Toileting Comments OT Toileting Comments Pt has barron in. At home pt states sits to urinate and usually pushes up from the toilet seat and pull on the sink to help get up. Pt able to stand from the toilet by pushing up on his legs to stand. OT ADL-Bathing Comments OT Bathing Comments To assess tomorrow. Pt has small shower stall and recommend pt has a shower chair for safety. M5 OT- IP IADL's Start: 08/15/19 17:16 Freq: Status: Active Protocol: Document 08/15/19 17:44 [facility] (Rec: 08/15/19 18:34 [facility] [id number]) OT-Instrumental Activities of Daily Living Home Safety Awareness Home Safety Comments Pt states was completely independent with all needs but since past two months due to pneumonia, noticed gets tired quickly and taking longer to do things at work and also at home at times hold onto surfaces as he walked. M6 OT- IP Functional Cognition Start: 08/15/19 17:16 Freq: Status: Active Protocol: Document 08/15/19 17:44 [facility] (Rec: 08/15/19 18:34 [facility] [id number]) Cognitive Factors Limiting Selfcare Function Cognitive Ability Level of Alertness Alert Patient Orientation Name,Place,Situation Attention Span Ability Capable of Focused Attention, Capable of Sustained Attention ,Unable to Sustain Attention Ability to Follow Commands Able to Follow One Step Commands Memory Description Short Term Impaired Safety Awareness Underestimates Need for Assistance Problem Solving Ability Unable to Identify Errors Executive Function Ability Unable to Filter Distractions, Unable to Remember Details Cognitive Comments Cognitive Assessment Comments Pt very talkative and has difficulty to stay on task. Pt able to follow one step at a time today. Pt just found out that he has cancer which may also be affecting his ability to concentrate and stay on task today. OT- Vision and Hearing OT- Hearing Assessment OT- Hearing Assessment WFL OT- Vision Assessment Visual Acuity Glasses All The Time Occular Pursuits WFL Vision Assessment Comments Pt able to read the clock accurately. M7 OT- IP Mobility and Balance Start: 08/15/19 17:16 Freq: Status: Active Protocol: Document 08/15/19 17:44 [facility] (Rec: 08/15/19 18:34 [facility] [id number]) OT- Bed Mobility Assessment Supine to Sit Supine to Sit Assist Standby Assistance Sit to Supine Sit to Supine Assist Standby Assistance Scooting Scooting to Edge of Bed Standby Assistance OT-Transfer Assessment Sit to and From Stand Sit to and from Stand Standby Assistance,Contact Guard Assistance Transfers Transfer Ability Standby Assistance,Contact Guard Assistance Technique Transfer Destination Bed,Chair,Toilet Transfer Technique Stand Step Pivot Devices Transfer Assistive Devices None,Gait Belt,Front Wheeled Walker Comments Mobility Comments Pt from supine able to sit up to long sitting with use of momentum and then get to the edge of the bed. Pt initially without boots on needing CGA with FWW to walk in the room and O2 on RA dropped to 88%. Later after PT left the room, pt wanting to try to get up to again. Pt able to walk in the room with shoes on and close sba, gait belt and having wide base of support and no FWW. When asked pt, pt states trying to be cautious on his feet. Spoke to PT as pt wanting to walk with nursing and clarified that okay for pt to walk in the room with FWW and monitoring O2. OT- Balance Assessment Sitting Balance and Reactions Static Sitting Balance Ability Normal Dynamic Sitting Balance Ability Normal Standing Balance and Reactions Static Standing Balance Ability Good Comments Other Balance Tests/Deviations/Treatment Pt unsteady on his feet : especially without his boots while initially up with FWW. M8 OT- IP Objective Assessments Start: 08/15/19 17:16 Freq: Status: Active Protocol: Document 08/15/19 17:44 [facility] (Rec: 08/15/19 18:34 [facility] [id number]) OT Gross Range of Motion Upper Extremity Range of Motion Assessment Within Functional Limits OT Strength Comments Strength Comments BUE from proximal to distal 4- /5 to 4+/5. OT- Coordination Assessment Upper Extremity Finger to Nose Test Within Functional Limits M9 OT- IP Assessment and Plan Start: 08/15/19 17:16 Freq: Status: Active Protocol: Document 08/15/19 17:44 [facility] (Rec: 08/15/19 18:34 [facility] [id number]) OT Summary Assessment and Plan Potential Rehabilitation Potential Good Analytic Complexity at Evaluation Low Summary OT Impairments Strength,Balance,Functional Cognition,Functional Mobility, Dressing,Toileting,Bathing, Toilet Transfers,Shower Transfers Progress Towards Goals Slow Progress due to Activity Tolerance Assessment Summary Pt low complexity and main barrier is decreased activity tolerance and O2 drops into low 80's, and now needing assist for functional mobility and assist to complete ADL's. Pt now having wider base of support and now will need use of FWW especially for long distances and uneven surfaces. 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 Goals Grooming Goal Independent Dressing Goal Standby Assistance Toileting Goal Standby Assistance Bathing Goal Minimal Assistance Toilet Transfer Goal Standby Assistance Shower Transfer Goal Contact Guard Assistance Patient/Caregiver Education Goal Demonstrate Energy Conservation and Pacing, Caregiver Independent Assisting Patient Days to Meet Goals 5 Frequency of Treatment Frequency Of Treatment Once a Day Treatment Plan OT Treatment Plan ADL Training,Functional Cognition Training,Functional Mobility,Patient/Family Education,Discharge Planning Other Treatment Recommendations and Next shower Treatment Focus Discharge Recommendations OT Discharge Recommendations Home with Assistance,Home Health,SNF Rehab Home Equipment Needs FWW, shower chair, BSC
[2019-08-15] MEDS: CEFTRIAXONE 1 GM/50 ML FROZ.PIGGY IV (16:57)
[2019-08-15] MEDS: OXYCODONE/ACETAMINOPHEN 5/325 TABLET 1 TAB PO ×2 (17:28→22:55)
[2019-08-15 17:36] LABS: Osmolality Urine 251 mOsm/kg (50-1200)
--- NOTE | 2019-08-15 19:22 | PT.IIE ---
Addendum entered and electronically signed by Courtney Cole PT 08/15/19 19:23: This is to certify that I have reviewed this documentation and is involved with this pt's care. Original Note: Current Diagnoses Acute respiratory failure with hypoxia (08/12/19) Medical History (Last Updated 07/30/19 @ 13:15 by JOANNA Schafer) Community acquired pneumonia (Acute 06/2019) COPD (chronic obstructive pulmonary disease) (Acute) Physical Therapy Inpatient Evaluation/Re-Eval M1 PT/OT-IP Prior Functional Status Start: 08/15/19 17:16 Freq: NEEDED Status: Active Protocol: Document 08/15/19 17:44 [facility] (Rec: 08/15/19 18:34 [facility] [id number]) Medical Review Prior Functional Status Medical History Reviewed Yes Diet/Fluid Consistency Regular,Thin Liquids Communication Independent. Mobility and Gait Independent with no device. Activities of Daily Living and IADL's Pt states completely independent with all ADL and IADl needs. 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 Social History Household Members none Living Arrangements House Number of Floors (Floors) One Floor Number of Stairs To Enter/Railing? 3 steps from the front door with no handrail. One step from the garage with no handrail. 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 Pt's ex- [place] [facility]. M2 PT-IP Current Condition Start: 08/15/19 17:52 Freq: NEEDED Status: Active Protocol: Document 08/15/19 15:45 JG (Rec: 08/15/19 19:00 JG [id number]) Physical Therapy Current Condition Current Condition Evaluation Date 08/15/19 Treatment Diagnosis Difficulty breathing, deconditioning, limited activity tolerance Onset Date 08/12/19 Precautions Other Precautions O2 desaturation M3 PT-IP Subjective Start: 08/15/19 17:52 Freq: NEEDED Status: Active Protocol: Document 08/15/19 15:45 JG (Rec: 08/15/19 19:00 JG [id number]) Subjective Physical Therapy Visit Type Type Initial Evaluation Visit Start Time 15:45 Visit Stop Time 16:28 Total Visit Minutes 43 Notes Co tx with OT Cookie Number of QUALITY CONTROL Visits 0 Physical Therapy Visit Comments Patient Comments Pt reports some difficulty breathing. Would like to get up and moving. Patient Goals Return home, return to work M4 PT-IP Mobility and Gait Start: 08/15/19 17:52 Freq: NEEDED Status: Active Protocol: Document 08/15/19 15:45 JG (Rec: 08/15/19 19:00 JG [id number]) PT-Bed Mobility Assessment Supine to Sit Supine to Sit Standby Assistance Sit to Supine Sit to Supine Standby Assistance Scooting Scooting to Edge of Bed Standby Assistance PT-Transfer Assessment Sit to and From Stand Sit to and from Stand Standby Assistance,Contact Guard Assistance Equipment Transfer Assistive Device Gait Belt,Front Wheeled Walker Transfers Transfer Destination Bed,Chair Transfer Technique Stand Step Pivot Transfer Ability Level of Assist Standby Assistance,Contact Guard Assistance Comments Mobility Comments Pt sitting in chair upon evaluation. Pt able to complete bed mobility and transfers with CGA for safety. Pt demonstrated impulsiveness and poor safety awareness throughout mobility and transfers and needed frequent cuing for safety. Pt began to desaturate (90% O2) with bed mobility, able to increase O2 with rest and cuing for deep breathing in <1 min. Gait Assessment Gait Gait Assistance Required: Standby Assistance,Contact Guard Assist Distance (Feet) 15 Assistive Devices Assistive Device Gait Belt,Front Wheeled Walker Gait Deviations General Gait Pattern Decreased Feet Clearance, Flexed Trunk,Wide Based Gait Factors Limiting Gait Function Factors Limiting Gait Function Decreased Activity Tolerance, Difficulty Following Directions,Poor Balance,Poor Safety Awareness,Respiratory Distress Comments Gait Comments Pt ambulated around room ~15 feet and desaturated to 88% O2 which improved with sitting and deep breathing. Pt demonstrated poor safety awareness with ambulation and has difficulty pacing himself. Stair Climbing Assessment Comments Stair Climbing Comments Not assessed. PT-Balance Assessment Sitting Balance and Reactions Static Sitting Balance Ability Good Dynamic Sitting Balance Ability Fair Standing Balance and Reactions Static Standing Balance Ability Fair Dynamic Standing Balance Ability Fair Device Used FWW M5 PT-IP Objective Assessments Start: 08/15/19 17:52 Freq: NEEDED Status: Active Protocol: Document 08/15/19 15:45 JG (Rec: 08/15/19 19:00 JG [id number]) Orientation Orientation/Cognition Level of Alertness Alert Orientation Name,Situation Language Function Ability Hard of Hearing Safety Awareness Decreased Safety Awareness Comments Pt was alert and confused throughout session and had difficulty focusing on task. Pt able to follow one step commands. Gross Range of Motion Lower Extremity ROM Assessment Within Functional Limits Strength Lower Extremity Strength Assessment Bilaterally Impaired Hip 4-/5 Knee 4-/5 Ankle 4/5 M6 PT-IP Treatment Start: 08/15/19 17:52 Freq: NEEDED Status: Active Protocol: Document 08/15/19 15:45 JG (Rec: 08/15/19 19:22 JG [id number]) Physical Therapy Treatment Education Education Provided Safety M7 PT-IP Assessment and Plan Start: 08/15/19 17:52 Freq: NEEDED Status: Active Protocol: Document 08/15/19 15:45 JG (Rec: 08/15/19 19:00 JG [id number]) PT Summary Assessment and Plan Potential Rehabilitation Potential Fair Status of Condition at Evaluation Evolving Summary Impairments Strength,Balance,Cognition,Bed Mobility,Transfers,Gait, Activity Tolerance Assessment Summary Pt is 64 yo male presenting with SOB and limited activity tolerance. Pt reports independence prior to hospitalization but decline in function over past 2 months. Pt was confused throughout session and had poor attention to task, demonstrating poor safety awareness throughout session. Required frequent cuing and reminders for safety throughout session. Pt also desaturated with minimal mobility and ambulation and required extended rest breaks to recover. PT recommending d/ c to SNF or home with 24/7 assist and home health due to poor safety awareness and extremely limited activity tolerance. Goals Bed Mobility Goal Standby Assistance Transfer Goal Standby Assistance,Front Wheeled Walker Gait Goal Standby Assistance,Front Wheel Walker Gait Distance 100' Other Goals Ambulation without AD and SBA for 50' 1 stair without railing and SBA Days to Meet Goals 10 Frequency of Treatment Frequency Of Treatment Once a Day Treatment Plan Physical Therapy Treatment Plan Bed Mobility Training,Transfer Training,Gait Training, Balance Retraining,Discharge Planning Recommendations To Nursing Amount of Assist Needed 1 Person Assist Discharge Recommendations PT Discharge Recommendations Home with 24/7 Assist,Home Health,SNF Rehab Equipment Needed for Home Before FWW Discharge
[2019-08-15] MEDS: TRAZODONE 50 MG TABLET PO (22:10)
[2019-08-16] VITALS (8 sets, daily range): BP systolic 116–149; BP diastolic 58–87; PULSE 89–105; RESP 16–183; TEMP 36.1–36.6; O2SAT 91–97
[2019-08-16] MEDS: OXYCODONE/ACETAMINOPHEN 5/325 TABLET 1 TAB PO ×2 (03:02→07:00)
[2019-08-16] MEDS: ALBUTEROL/IPRATROPIUM 3 ML AMPUL INH (08:43)
[2019-08-16] MEDS: guaiFENesin ER 600 MG TAB 1200 MG PO (10:24)
[2019-08-16] MEDS: KETOROLAC 10 MG TABLET PO (10:25)
[2019-08-16] MEDS: TAMSULOSIN 0.4 MG CAPSULE PO (10:25)
[2019-08-16] MEDS: ACETAMINOPHEN 325 MG TABLET 650 MG PO (10:25)
[2019-08-16] MEDS: NICOTINE 7 MG PATCH TOP (10:25)
[2019-08-16] MEDS: predniSONE 20 MG TABLET 40 MG PO (10:25)
[2019-08-16] MEDS: HEPARIN 5,000 UNIT/ML VIAL 5000 UNIT SUBCUT (10:26)
--- NOTE | 2019-08-16 10:36 | PM.DS.1 ---
History of Present Illness History of Present Illness Date Patient Seen: 08/12/19 Chief complaint: difficulty breathing Narrative: Written by Dr. Pack: Rafy Renner is a 64-year-old male with past medical history of COPD (active smoker but trying to quit) presented to the ED with shortness of breath. His shortness of breath has been progressing over the past few months he says, but has been markedly worse over the past few days. He reported a subjective fever and ongoing productive cough of yellow sputum. In the emergency room he was having a lot of trouble breathing and had a pulse oximetry reading in the upper 80s and was unable to speak approximately 3 words before taking a deep breath. He reports outpatient treatment for pneumonia about a month ago and was feeling better again until a few days ago. He has been seeing his primary care physician for help with smoking cessation as well as manipulation of his COPD medications to try and control his shortness of breath but this has not been helping much. He admitted to subjective fever with much questioning but initially denied this, he does have a productive cough of yellow sputum, but denies nasal congestion or runny nose, he has diffuse bone pains which are unchanged the last few days and he further reports difficulty sleeping. He denies any nausea, vomiting, chest pain, palpitations. He is used to walking approximately 5 miles a day, however recently he is only able to go a few steps in the last few days he is short of breath at rest. In the ED the patient was hypoxic as noted above, he was given steroids and nebulizers which helped his breathing. His chest x-ray showed multi lobar pneumonia, a right-sided pleural effusion, and the patient was started on ceftriaxone and azithromycin. He was admitted to Medicine for hypoxemic respiratory failure secondary to likely pneumonia and pleural effusion with possible COPD exacerbation. Discharge Providers Provider Date of admission: 08/12/19 14:59 Discharge Date: 08/16/19 Primary care physician: Lili Schaeffer DO Consults: 08/12/19 10:22 Consult to Respiratory Therapy Evaluate & Treat Comment: Physician Instructions: Evaluate and treat 08/12/19 17:29 Consult to Respiratory Therapy Evaluate & Treat Comment: Physician Instructions: Evaluate and treat 08/15/19 12:12 Consult to Occupational Therapy Evaluate & Treat Comment: Physician Instructions: Evaluate and treat Consult to Physical Therapy Evaluate & Treat Comment: Physician Instructions: Evaluate and Treat 08/15/19 22:17 Consult to Dietitian, Adult Routine Comment: Reason For Exam: PCM 08/16/19 10:40 Consult to Physical Therapy Evaluate & Treat Comment: JAYLAN bosch home use Physician Instructions: Evaluate and Treat Discharge provider: Alanis Recio DO Summary Hospital Course Discharge Diagnosis: 1. Newly diagnosed right hilar/lung mass, present on admission. Active. 2. Acute hypoxemic respiratory failure, present on admission. Resolved. 3. Acute multilobar and likely post-obstructive bacterial pneumonia, present on admission. Resolved. 4. Right pleural effusion status post thoracentesis, acute, present on admission. Active. 5. Acute COPD exacerbation, present on admission. Resolved. 6. Hyponatremia, chronic, present on admission. Stable. 7. Acute demand ischemia, present on admission. Resolved. 8. BPH, with urinary retention, not present on admission. Stable. 9. Tobacco dependence, chronic, present on admission. Stable. 10. Protein calorie malnutrition, likely acute on chronic, present on admission. Active. Hospital Course: Rafy Renner is a 64-year-old male with past medical history of COPD and tobacco dependence but actively trying to quit who presented to the ED with progressive worsening shortness of breath. 1. Newly diagnosed right hilar/lung mass, present on admission. Active. -CT chest without contrast demonstrated highly suspicious for right endotracheal lesion and right hilar mass compressing/occluding distal right mainstem bronchus with near complete atelectasis of right middle lobe and right lower lobe. Prominent mediastinal lymph nodes concerning for metastatic lymphadenopathy. Mild cardiomegaly and small pericardial effusion. -Discussed findings in detail with the patient and his ex-. Plan for expedited pulmonary evaluation and likely bronchoscopy for tissue diagnosis. Discussed case with on-call live hanger at [facility] Dr. Diaz who kindly helped to expedite referral/consultation. 2. Acute hypoxemic respiratory failure, present on admission. Resolved. -Secondary to right lung mass, community-acquired pneumonia, new right-sided pleural effusion and COPD exacerbation. -Continued supplemental oxygen to keep oxygen saturation 88-92%. Off oxygen. 3. Acute multilobar and likely post-obstructive bacterial pneumonia, present on admission. Resolved. -Chest x-ray demonstrated worsening of diffuse right lung parenchymal opacity with consolidation in the right infrahilar region and hyperexpanded left lung with a small left lower lobe consolidation. -Respiratory PCR negative. Blood cultures x 2 have no growth to date. -Continued ceftriaxone 1 g IV daily for 5 doses and completed azithromycin x 3 doses. -Received methylprednisolone 125 mg IV x 1 in ED. Continued prednisone 40 mg x 4 doses to complete 5 days total of glucocorticoids. 4. Right pleural effusion status post thoracentesis, acute, present on admission. Active. -Differential includes lung malignancy, parapneumonic effusion, and hyponatremia which seems to suggest SIADH. -Pleural studies consistent with an exudative effusion. -CT chest demonstrated moderate to large partially loculated right pleural effusion. May need to consider repeat thoracentesis vs thoracotomy vs VATS and will defer to pulmonology. 5. Acute COPD exacerbation, present on admission. Resolved. -Received methylprednisolone 125 mg IV x 1 in ED. Continued prednisone 40 mg x 4 doses to complete 5 days total of glucocorticoids. -Continued Mucinex 1200 mg twice daily. -Consulted respiratory therapy for evaluation and treatment. Continued duonebs every 6 hours while awake and albuterol every 2 hours as needed. Continued acapella 10 times an hour while awake and after each nebulizer. 6. Hyponatremia, chronic, present on admission. Stable. -Patient appears to have chronic hyponatremia with prior sodium of 125 in 06/2019. He is asymptomatic at this time. Patient clinically appears euvolemic. Suspect SIADH at this time due to urine Na >40 with normal urine osmolality and underlying lung malignancy. UA was unremarkable. -Continued fluid restriction of 1.5 L daily as sodium level slightly improved/stable. Recommend close outpatient monitoring of sodium level per PCP. Ordered repeat BMP in 1 week. 7. Acute demand ischemia, present on admission. Resolved. -Secondary to acute hypoxemic respiratory failure. -Troponin of 0.06 on admission and trended down to 0.05 and resolved with improvement in oxygenation. No need to further trend. 8. BPH, with urinary retention, not present on admission. Stable. -Patient voided 100 mL and had a 600 cc post-void residual for which a Barron catheter was placed and he was started on Flomax. -Continued tamsulosin 0.4 mg daily. -Removed barron catheter and patient was able to void without difficulty and did not have significant PVR. 9. Tobacco dependence, chronic, present on admission. Stable. -Counseled patient on smoking cessation and actively trying to quit. -Continued nicotine patch as needed for nicotine withdraw and discharged with prescription. -Started and discharged on buproprion 150 mg daily and will defer to PCP to consider increasing dose to twice daily in next 1 week. 10. Protein calorie malnutrition, likely acute on chronic, present on admission. Active. -Secondary to underlying malignancy. -Ordered dietitian consultation which was not obtained due to unavailability on weekends. Exam Vital Signs (past 8 hours): - 08/16/19 09:07 08/16/19 09:18 08/16/19 10:15 Temperature 97.2 F L Pulse Rate 90 105 H Respiratory Rate 183 H 18 Blood Pressure 125/82 Pulse Oximetry 93 91 94 08/16/19 11:18 Temperature 97 F L Pulse Rate 95 H Respiratory Rate 16 Blood Pressure 116/58 L Pulse Oximetry 97 Fraction of Inspired Oxygen 21 Oxygen Delivery Method Room Air Oxygen Flow Rate 0 Narrative Exam Narrative: General: Older cachectic male lying in bed and in no acute distress, appears older than stated age in chronically ill, appropriately interactive. HEENT: Normocephalic, atraumatic. External ears without defect. Pupils equal, round, and reactive to light. Anicteric sclerae, moist conjunctivae, and no lid lag. Neck: Poor turgor with full range of motion. No lymphadenopathy or thyromegaly. Cardiovascular: Regular rate and rhythm without murmurs, rubs, or gallops appreciated. Pulmonary: Diminished breath sounds on right side with scattered rhonchi throughout rest of lung resendiz. No wheezes or crackles. Conversational dyspnea present with mild use of accessory muscles. Abdomen: Soft, scaphoid, nontender, nondistended. No hepatosplenomegaly or masses appreciated. Extremities: No clubbing, cyanosis, or edema. Skin: Normal temperature, poor turgor, and normal texture; no rash, ulcers, or subcutaneous nodules appreciated. Neurological: Cranial nerves grossly intact. Psychiatric: Depressed mood given situation as anticipated. Normal affect. Alert and oriented to person, place, and time. Objective Labs Result Diagrams: 08/15/19 06:10 08/15/19 06:10 Labs: Laboratory Results - last 24 hr 08/12/19 19:35 Urine Osmolality 251 Discharge Plan Discharge Plan Patient Disposition: Home Health Service Discharge comment: You're being discharged home with home health. You have a right lung mass which needs to be biopsied. A referral has been placed by your PCP to pulmonology in [place] who should be calling you on Sunday to arrange an appointment. If you do not hear from them on Sunday please call to make an appointment for consultation. They will arrange for a biopsy thereafter. You have been prescribed bupropion 150 mg daily to help with smoking cessation and the dose should be increased after 1 week by your PCP. You have also been provided a nicotine patch to help with smoking cessation. Please try to abstain from smoking altogether. You have also been prescribed Percocet 5 mg 1-2 tabs every 4 hours as needed for severe pain and methocarbamol 500 mg every 6 hours as needed for muscle spasm. Please do not use these medications while driving and use them sparingly as they may suppress your breathing and hasten your . You have been prescribed tamsulosin 0.4 mg daily for prostate enlargement. You have been prescribed Mucinex 1200 mg twice daily to help thin secretions and albuterol inhaler 1 puff every 4 hours as needed for shortness of breath or wheezing. Discharge Med Rec/Prescriptions Prescriptions: New nicotine 7 mg/24 hr Patch 24 Hour 7 mg topical DAILY Qty: 14 RF: 0 guaifenesin [Mucus Relief ER] 600 mg Tablet Extended Release 12hr 1,200 mg PO BID Qty: 20 RF: 0 oxycodone-acetaminophen 5-325 mg Tablet 1 - 2 tab PO Q4HR PRN (Reason: Pain, Severe (7-10)) Qty: 45 RF: 0 tamsulosin [Flomax] 0.4 mg Capsule 0.4 mg PO DAILY Qty: 30 RF: 0 bupropion HCl (smoking deter) 150 mg tablet extended release 12 hr 150 mg PO DAILY Qty: 30 RF: 0 methocarbamol 500 mg tablet 500 mg PO QID Qty: 30 RF: 0 albuterol sulfate 90 mcg/actuation HFA aerosol inhaler 1 inhalation INHALATION QID PRN (Reason: shortness of breath or wheezing) Qty: 18 RF: 0 docusate sodium 100 mg capsule 100 mg PO BID Qty: 60 RF: 0 polyethylene glycol 3350 [Miralax] 17 gram/dose powder 17 gram PO DAILY Qty: 119 RF: 0 Continued acetaminophen 325 MG tablet 650 mg PO PRN PRN (Reason: PAIN) Qty: 0 RF: 0 diphenhydramine HCl [Benadryl Allergy] 25 MG tablet 50 mg PO BEDTIME Qty: 0 RF: 0 calcium carbonate [Tums] 500 MG tablet,chewable 500 mg PO PRN PRN (Reason: Indigestion) Qty: 0 RF: 0 ibuprofen 600 mg tablet 600 mg PO Q6H PRN (Reason: pain) Qty: 30 RF: 0 Spiriva with HandiHaler 18 mcg capsule, w/inhalation device 1 cap INHALATION DAILY Qty: 60 RF: 0 triamcinolone acetonide 0.1 % cream 1 applictn Topical BEDTIME RF: 0 omeprazole 20 mg Tablet,Delayed Release (Dr/Ec) 40 mg PO QAM RF: 0 Discontinued albuterol sulfate [Proventil HFA] 90 mcg/actuation HFA aerosol inhaler 1 puff inhalation QID PRN (Reason: bronchospasm) Qty: 1 RF: 0 Other Ambulatory Orders: Basic Metabolic Panel (Stat) Timeframe: 1 Week Facility: [facility] - Location: Laboratory Ordered By: Alanis Recio Follow up/Referrals: [facility] Pulmonology [Provider Group] - 1 Week (Call Sunday to see if you have an appointment scheduled for a consultation, if not, call them to schedule an appt. ) Lili Schaeffer DO [Primary Care Provider] - 3-5 Days Provider Discharge Instructions Diet: Diet as Tolerated Diet comment: 1.5 L fluid restriction Activity: Activity as tolerated with forward wheeled walker and physical and occupational therapy Visit Report/Discharge Packet Instructions: DI for Hyponatremia, DI for Shortness of Breath, How to Prevent Falls, Hyponatremia-Adult, How to Manage Shortness of Breath Discharge Data Primary Care Provider: Lili Schaeffer Discharges patient from system. Discharge Date/Time: 08/16/19 15:55 Quality VTE Deep Vein Thrombosis/Pulmonary Embolism Present on Admission: No
--- NOTE | 2019-08-16 10:50 | PT.IPTN ---
Current Diagnoses Acute respiratory failure with hypoxia (08/12/19) Physical Therapy Treatment Note M2 PT-IP Current Condition Start: 08/15/19 17:52 Freq: NEEDED Status: Active Protocol: Document 08/15/19 15:45 JG (Rec: 08/15/19 19:00 JG [id number]) Physical Therapy Current Condition Current Condition Evaluation Date 08/15/19 Treatment Diagnosis Difficulty breathing, deconditioning, limited activity tolerance Onset Date 08/12/19 Precautions Other Precautions O2 desaturation M3 PT-IP Subjective Start: 08/15/19 17:52 Freq: NEEDED Status: Active Protocol: Document 08/16/19 10:50 GGD (Rec: 08/16/19 12:22 GGD [id number]) Subjective Physical Therapy Visit Type Type Treatment Note Visit Start Time 10:25 Visit Stop Time 10:50 Total Visit Minutes 25 Number of PIPE WELDER Visits 1 Physical Therapy Visit Comments Patient Comments Pt willing with PT. M4 PT-IP Mobility and Gait Start: 08/15/19 17:52 Freq: NEEDED Status: Active Protocol: Document 08/16/19 10:50 GGD (Rec: 08/16/19 12:22 GGD [id number]) PT-Transfer Assessment Sit to and From Stand Sit to and from Stand Standby Assistance,Contact Guard Assistance Equipment Transfer Assistive Device Gait Belt,Front Wheeled Walker Transfers Transfer Destination Chair Transfer Technique Stand Step Pivot Transfer Ability Level of Assist Standby Assistance,Contact Guard Assistance Gait Assessment Gait Gait Assistance Required: Standby Assistance,Contact Guard Assist Distance (Feet) 100 Assistive Devices Assistive Device Gait Belt,Front Wheeled Walker Gait Deviations General Gait Pattern Decreased Feet Clearance, Flexed Trunk,Wide Based Gait Factors Limiting Gait Function Factors Limiting Gait Function Decreased Activity Tolerance, Difficulty Following Directions,Poor Balance,Poor Safety Awareness,Respiratory Distress Stair Climbing Assessment Evaluation Level of Assist On Stairs Contact Guard Assistance Devices Stair Climbing Assistive Devices Front Wheel Walker Technique/Endurance Stair Climbing Direction Ascend and Descend Stair Climbing Technique Step to Step Number of Steps Climbed 1 Stair Climbing Set # Repetitions (reps) 2 M5 PT-IP Objective Assessments Start: 08/15/19 17:52 Freq: NEEDED Status: Active Protocol: Document 08/15/19 15:45 JG (Rec: 08/15/19 19:00 JG [id number]) Orientation Orientation/Cognition Level of Alertness Alert Orientation Name,Situation Language Function Ability Hard of Hearing Safety Awareness Decreased Safety Awareness Comments Pt was alert and confused throughout session and had difficulty focusing on task. Pt able to follow one step commands. Gross Range of Motion Lower Extremity ROM Assessment Within Functional Limits Strength Lower Extremity Strength Assessment Bilaterally Impaired Hip 4-/5 Knee 4-/5 Ankle 4/5 M6 PT-IP Treatment Start: 08/15/19 17:52 Freq: NEEDED Status: Active Protocol: Document 08/16/19 10:50 GGD (Rec: 08/16/19 12:22 GGD [id number]) Physical Therapy Treatment Education Education Provided Safety Equipment Issued Equipment Type and Company FWW for home use M7 PT-IP Assessment and Plan Start: 08/15/19 17:52 Freq: NEEDED Status: Active Protocol: Document 08/16/19 10:50 GGD (Rec: 08/16/19 12:22 GGD [id number]) PT Summary Assessment and Plan Summary Assessment Summary Pt improve with mobility. He was able to progress gait distance. Pt was safe and stable with stair mobility. Frequency of Treatment Frequency Of Treatment Once a Day Treatment Plan Physical Therapy Treatment Plan Bed Mobility Training,Transfer Training,Gait Training, Balance Retraining,Discharge Planning Recommendations To Nursing Amount of Assist Needed 1 Person Assist Discharge Recommendations PT Discharge Recommendations Home with Assistance,Home Health
--- NOTE | 2019-08-16 11:26 | OT.IP.TRT ---
Current Diagnoses Acute respiratory failure with hypoxia (08/12/19) Occupational Therapy Treatment Note M2 OT-IP Current Condition Start: 08/15/19 17:16 Freq: Status: Active Protocol: Document 08/15/19 17:44 [facility] (Rec: 08/15/19 18:34 [facility] [id number]) Occupational Therapy Current Condition Current Condition Evaluation Date 08/15/19 Treatment Diagnosis Acute hypoxemic respiratory failure secondary to PNA Diagnosis Onset Date 08/12/19 Weight Bearing Status Weight Bearing Status Weight Bear as Tolerated M3 OT- IP Subjective and Pain Start: 08/15/19 17:16 Freq: Status: Active Protocol: Document 08/16/19 12:23 [facility] (Rec: 08/16/19 12:48 [facility] [id number]) OT- Subjective Occupational Therapy Visit Type Type Treatment Note Visit Start Time 11:26 Visit Stop Time 12:05 Total Visit Minutes 39 Occupational Therapy Visit Comments Patient Comments Pt wanting to shower. OT Pain Assessment Pain When Pain Assessed At Rest Pain Present Pain Present Denied Pain M4 OT- IP ADL's Start: 08/15/19 17:16 Freq: Status: Active Protocol: Document 08/16/19 12:23 [facility] (Rec: 08/16/19 12:48 [facility] [id number]) OT ADL-Dressing General Eval Upper Body Dressing Ability Independent Lower Body Dressing Ability Standby Assistance Comments OT Dressing Comments Pt able to do LB dressing while sitting. Pt aware to take his time to dress and take rest breaks, O2 level decreased to 88% and increased to 91% after 30 seconds. OT ADL-Bathing Bathing Type Bathing Type Shower General Evaluation Bathing Ability Standby Assistance Areas Needing Assistance Retrieving/Setting Up Items Devices Bathing Equipment Hand Held Shower Sprayer, Shower Chair with Arms Comments OT Bathing Comments Pt agrees would be best to get shower chair for home use. Pt 's O2 drops to 88% after shower and while walking back with FWW and needing to take a standing rest break for 30 seconds in order to increase up to 92%. M5 OT- IP IADL's Start: 08/15/19 17:16 Freq: Status: Active Protocol: Document 08/15/19 17:44 [facility] (Rec: 08/15/19 18:34 [facility] [id number]) OT-Instrumental Activities of Daily Living Home Safety Awareness Home Safety Comments Pt states was completely independent with all needs but since past two months due to pneumonia, noticed gets tired quickly and taking longer to do things at work and also at home at times hold onto surfaces as he walked. M6 OT- IP Functional Cognition Start: 08/15/19 17:16 Freq: Status: Active Protocol: Document 08/16/19 12:23 [facility] (Rec: 08/16/19 12:48 [facility] [id number]) Cognitive Factors Limiting Selfcare Function Cognitive Ability Level of Alertness Alert Patient Orientation Name,Age,Birthday,Month,Date, Year,Day of Week,Place, Situation Attention Span Ability Capable of Focused Attention, Capable of Sustained Attention Ability to Follow Commands Able to Follow Multi-Step Commands Memory Description No Deficits Noted Safety Awareness No Deficits Noted Problem Solving Ability No deficits Noted Cognitive Comments Cognitive Assessment Comments Pt doing better with problem solving today and able think more clearly. M7 OT- IP Mobility and Balance Start: 08/15/19 17:16 Freq: Status: Active Protocol: Document 08/16/19 12:23 [facility] (Rec: 08/16/19 12:48 [facility] [id number]) OT-Transfer Assessment Sit to and From Stand Sit to and from Stand Standby Assistance Transfers Transfer Ability Standby Assistance Technique Transfer Destination Chair,Shower Stall Devices Transfer Assistive Devices Gait Belt,Front Wheeled Walker Comments Mobility Comments Pt agreed to use FWW due to fatigue and decreased activity tolerance for needs. OT- Balance Assessment Comments Other Balance Tests/Deviations/Treatment Still a little unsteady on his : feet especially without the FWW. M8 OT- IP Objective Assessments Start: 08/15/19 17:16 Freq: Status: Active Protocol: Document 08/15/19 17:44 [facility] (Rec: 08/15/19 18:34 [facility] [id number]) OT Gross Range of Motion Upper Extremity Range of Motion Assessment Within Functional Limits OT Strength Comments Strength Comments BUE from proximal to distal 4- /5 to 4+/5. OT- Coordination Assessment Upper Extremity Finger to Nose Test Within Functional Limits M9 OT- IP Assessment and Plan Start: 08/15/19 17:16 Freq: Status: Active Protocol: Document 08/16/19 12:23 [facility] (Rec: 08/16/19 12:48 [facility] [id number]) OT Summary Assessment and Plan Potential Rehabilitation Potential Good Analytic Complexity at Evaluation Low Summary Progress Towards Goals Progressing Toward Goals Assessment Summary Pt to go home today with family. Pt has good understanding for OT needs to get a shower chair and also was issued FWW. Goals Days to Meet Goals 1 Frequency of Treatment Frequency Of Treatment Once a Day Discharge Recommendations OT Discharge Recommendations Home with Assistance,Home Health
--- NOTE | 2019-08-16 15:03 | CM.DPC ---
DCP continued: EMR reviewed: CM was contacted by ED check in desk letting CM know family for the patient was waiting to talk to CM. CM met with patient at bedside and explained CM role. Cm explained to patient that his family was very concerned. CM asked if it was ok to talk to the family. Patient stated he would like to have the family talk to him and not to hospital staff. CM stated understanding and explained that there was family waiting to talk to CM. Patient asked if CM would show patients ex- into his room and he would talk with her about what was going on. CM stated understanding. CM let patient know that his sister Shazia [phone] contacted CM to discuss frustration with patients D/C plan to go home today with HH. Patient asked again that all his family members with questions about his health care be directed to him to handle. CM stated understanding. CM met with patient Ex- and explained that due to HIPAA Laws CM was unable to discuss patients health care plan. CM let patients Ex- know she would be able to go meet with the patient and ask him about dc plans. patients ex- was frustrated but followed CM to patients room where she talked with the patient. Cm Faxed [facility], and clinicals to review. DC summary and HH orders sent. Angelika Hernandez RN.
--- NOTE | 2019-08-16 15:24 | PC.NURSE ---
Discharge pt states he had pain this AM however it was controlled with toradol and tylenol. requested release of records, this was provided to pt at d/c. d/c instructions provided to pt. Aware to contact PCP for apt on sunday in 3-5 days. Also provided number for [facility] to contact sunday to see if he has an apt. Reinforced with pt importance of fluid restriction and consequences of hyponatremia. pt stated he understood. Rx for percocet given to pt's son to drop off. Pt awaiting son's return to d/c.
[2019-08-16] MEDS: ALBUTEROL 2.5 MG/3 ML NEB (ADULT) INH (15:43)
--- NOTE | 2019-08-16 16:01 | PC.NURSE ---
Pt discharged from AC with son. Off unit via wheelchair to personal vehicle. RX given/pharmacy called to confirm rx is ready to be picked up. Denies further questions/or needs.
== END 2019-08-16 15:55 | disposition home health service (06) | DRG 193 ==
LOC: ED 13:52 → AC 15:00
PROVIDERS: Internal Medicine; Nurse Practitioner Gerontology; Admitting Provider Internal Medicine; Emergency Provider Emergency Medicine; PCP Family Medicine; Visit Provider Internal Medicine
DX: J18.1 Lobar pneumonia, unspecified organism (principal); J96.01 Acute respiratory failure with hypoxia; I21.A1 Myocardial infarction type 2; J44.1 Chronic obstructive pulmonary disease with (acute) exacerbation; J90 Pleural effusion, not elsewhere classified; E87.1 Hypo-osmolality and hyponatremia; J98.11 Atelectasis; E46 Unspecified protein-calorie malnutrition; N40.1 Benign prostatic hyperplasia with lower urinary tract symptoms; R33.8 Other retention of urine; R91.1 Solitary pulmonary nodule; R59.0 Localized enlarged lymph nodes; F17.210 Nicotine dependence, cigarettes, uncomplicated; Z68.20 Body mass index [BMI] 20.0-20.9, adult
CPT/HCPCS: 32555; 36415; 36600; 71045; 71046; 71250; 80048; 80053; 81001; 81003; 82550; 82805; 82945; 83605; 83615; 83735; 83880; 83935; 84145; 84157; 84300; 84484; 85025; 85610; 85730; 87040; 87070; 87075; 87205; 87502; 87633; 89051; 93005; 94640; 94760; 96365; 96367; 96375; 97116; 97162; 97165; 97530; 97535; 99284; 99285; J1644; J2270; J2930; J7613

== ENCOUNTER → 2019-08-20 10:26 | Outpatient (CLI) | payer OTHER, SELFPAY ==
[2019-08-12 16:15] VITALS: BMI 20.7
--- NOTE | 2019-08-20 10:28 | DI.RAD.S_ITS ---
PROCEDURE: XR ACUTE ABDOMEN SERIES INDICATIONS: constipation, recent lung mass finding TECHNIQUE: One view chest and two views of the abdomen were acquired. COMPARISON: [facility], CT, CT CHEST WO CON, 08/15/2019, 7:33. [facility], CR, XR CHEST 1V, 08/13/2019, 10:04. FINDINGS: Surgical changes and devices: None. Chest: Interval increase in the size of the now moderate-sized right pleural effusion. Interval worsening of the right perihilar/medial right lung base consolidation which now opacifies the series the right lower lobe and right middle lobe. No pneumothorax. There are similar left lung base opacities. Abdomen: Moderate to severe stool burden throughout the colon, greatest within the cecum. Multiple small lucencies along the periphery of right colon likely represent aerated stool, but underlying pneumatosis cannot be excluded. Bones: Moderate multilevel degenerative changes of the lumbar spine and bilateral hips. IMPRESSION: 1. Moderate to severe stool burden throughout the colon, greatest within the cecum. Multiple small lucencies along the periphery of the right colon likely represent aerated stool, but underlying pneumatosis cannot be excluded. Recommend CT for further evaluation if there is continued clinical concern. 2. Interval worsening of the right perihilar/medial right lung base consolidation correlating with the known right hilar pulmonary mass seen on comparison CT of 08/15/19 with additional superimposed worsening pneumonia versus atelectasis. 3. Interval increase in size of the now moderate-sized right pleural effusion, with some findings suggestive of underlying bilateral pulmonary edema. Initial attempts at contacting referrring provider Dr. Sharmila Cosme by telephone on 08/20/19 were unsuccessful. Continued attempts will be made an an addendum to this report will be added if sucessful. Dictated by: Simeon Garcia M.D. on 08/20/2019 at 14:30 Approved by: Simeon Garcia M.D. on 08/20/2019 at 15:09
== END ==
PROVIDERS: PCP Family Medicine; Visit Provider Nurse Practitioner Family
DX: K59.00 Constipation, unspecified (principal); J90 Pleural effusion, not elsewhere classified; R91.8 Other nonspecific abnormal finding of lung field; M47.816 Spondylosis without myelopathy or radiculopathy, lumbar region; R10.9 Unspecified abdominal pain; R14.0 Abdominal distension (gaseous)
CPT/HCPCS: 74022

== ENCOUNTER 2019-08-20 16:49 | Emergency (ER) | payer OTHER, SELFPAY ==
[2019-08-12 16:15] VITALS: BMI 20.7
[2019-08-20 16:53] VITALS: BP 131/71; PULSE 104; RESP 22; TEMP 36.9; O2SAT 96
[2019-08-20 18:11] LABS: Add Manual Diff / Slide Review NO; Basophils Absolute Auto 0 /uL (0-100); Basophils Percent Auto 0.2 % (0-2); Eosinophils Absolute Auto 100 /uL (0-450); Eosinophils Percent Auto 0.7 % (2-4); Hematocrit 32.3 % (41-53); Hemoglobin 10.9 g/dL (13.5-17.5); Lymphocytes Absolute Auto 800 /uL (1100-4500); Mean Corpuscular HGB Conc 33.9 % (30-36); Mean Corpuscular Hemoglobin 29.4 PG (26-34); Mean Corpuscular Volume 86.8 fL (80-100); Monocytes Absolute Auto 800 /uL (0-900); Monocytes Percent Auto 9.2 % (3-14); Neutrophils Absolute Auto 7300 /uL (1500-7000); Neutrophils Percent Auto 80.9 % (50-75); Platelet Count 394 X10^3/uL (150-400); Red Blood Cell Count 3.73 X10^6/uL (4.5-5.9); Red Cell Distribution Width 14.2 % (11.6-14.8)
--- NOTE | 2019-08-20 18:20 | ED_ITS ---
HPI - Abdominal Pain General Chief Complaint: Abdominal Pain Stated Complaint: constipation Time Seen by Provider: 08/20/19 18:01 Source: patient and old records reviewed Mode of arrival: Ambulatory Limitations: no limitations History of Present Illness HPI narrative: Patient is a 64-year-old male who presents with abdominal pain ongoing week. Says he has not had a bowel movement 1 week it is passing gas 1 nausea no vomiting. He was actually just admitted to the hospital last week with pneumonia but found to have new onset lung cancer. He had a his biopsy at [facility] yesterday. He did had a chest abdomen pelvis x-ray this morning as an outpatient which did show moderate stool burden. His PCP did do a rectal exam and did not find any stool in the rectum. As he was prescribed a bottle of magnesium citrate which he did not take. He is now in the ED for further evaluation. MD complaint: abdominal pain Onset (ago): week(s) Pain Consistency: constant Location: diffuse Quality: cramping Radiation: none Migration to: no migration Relieving factors: nothing Related Data Home Medications Medication Instructions Recorded Confirmed acetaminophen 650 mg PO PRN PRN #0 09/06/16 08/20/19 calcium carbonate [Tums] 500 mg PO PRN PRN #0 11/07/16 08/20/19 diphenhydramine HCl [Benadryl 50 mg PO BEDTIME #0 11/07/16 08/20/19 Allergy] omeprazole 40 mg PO QAM 08/12/19 08/20/19 triamcinolone acetonide 1 applictn TOPICAL BEDTIME 08/12/19 08/20/19 docusate sodium 100 mg capsule 100 mg PO DAILY cap 08/20/19 magnesium hydroxide 400 mg/5 mL 30 ml PO DAILY PRN ml 08/20/19 08/20/19 oral suspension methocarbamol 500 mg tablet 500 mg PO QID PRN tab 08/20/19 Previous Rx's Medication Instructions Recorded ibuprofen 600 mg tablet 600 mg PO Q6H PRN #30 tab 07/15/19 tiotropium bromide 18 mcg capsule 1 cap INHALATION DAILY #60 07/30/19 with inhalation device inhalation albuterol sulfate 1 inhalation INHALATION QID PRN 08/16/19 #18 gram bupropion HCl (smoking deter) 150 mg PO DAILY #30 tab 08/16/19 guaifenesin [Mucus Relief ER] 1,200 mg PO BID #20 tab 08/16/19 nicotine 7 mg TOPICAL DAILY #14 each 08/16/19 oxycodone-acetaminophen 1 - 2 tab PO Q4HR PRN #45 tab 08/16/19 tamsulosin [Flomax] 0.4 mg PO DAILY #30 cap 08/16/19 Allergies Allergy/AdvReac Type Severity Reaction Status Date / Time No Known Drug Allergies Allergy Verified 08/20/19 09:41 Review of Systems Review of Systems Narrative: GENERAL: Denies chills, fatigue, malaise, fever, sweats, travel HEENT: Denies sinus pain, ear pain, sore throat, difficulty swallowing, neck pain RESPIRATORY: Denies dyspnea, cough, wheezing, hemoptysis, sputum. CARDIOVASCULAR: Denies chest pain, palpitations, orthopnea, edema GASTROINTESTINAL: See HPI : Denies dysuria, frequency, incontinence, hematuria, urinary retention, flank pain. MUSCULOSKELETAL: Denies weakness, joint pain, or bony pain SKIN: No rash, no erythema, no pruritus NEUROLOGIC: Denies weakness, dizziness, headache, numbness, change in speech, confusion PSYCHIATRIC: No concerning psychosocial issues. 12 point review of systems is negative except for those stated above and HPI Patient History Medical History Community acquired pneumonia (Acute 06/2019) COPD (chronic obstructive pulmonary disease) (Acute) Mass of right lung (Acute 07/2019) Social History household members: none Smoking Status: Current some day smoker alcohol intake: former Alcohol type: other Substance Use Type: does not use Exam Initial Vital Signs Initial Vital Signs: Vital Signs Temperature 98.5 F 08/20/19 16:53 Pulse Rate 104 H 08/20/19 16:53 Respiratory Rate 22 08/20/19 16:53 Blood Pressure 131/71 08/20/19 16:53 Pulse Oximetry 96 08/20/19 16:53 GENERAL: Alert pleasant well-appearing male and in no acute distress. HEENT: Head atraumatic,EOMI, pupils reactive, face symmetric CARDIOVASCULAR: Regular rate and rhythm without murmurs, rubs or gallops. RESPIRATORY: Breath sounds equal bilaterally, no wheezes rales or rhonchi. ABDOMEN: Soft, slight distention no guarding no rebound EXTREMITIES: Normal range of motion, no clubbing or edema. Neurovascularly intact NEUROLOGICAL: Alert and oriented x4.Normal gait and speech. SKIN: Warm, dry, no laceration, no petechiae, no rashes or lesions. Course Orders Ordered: ED Orders 08/20/19 17:10 EKG-12 Lead Stat 08/20/19 18:00 Complete Blood Count AUTO DIFF Stat Comprehensive Metabolic Panel Stat Lipase Stat Partial Thromboplastin Time Stat Prothrombin Time INR Stat 08/20/19 18:22 CT abdomen pelvis w con Stat 08/20/19 18:43 CT angio chest PE protocol Stat Discontinued Medications Ketorolac Tromethamine (Toradol) 15 mg IV NOW ONE Stop: 08/20/19 18:24 Last Admin: 08/20/19 19:14 Dose: 15 mg Documented by: TEE Sodium Biphosphate/Sodium Phosphate (Fleet Enema) 1 each [place] NOW ONE Stop: 08/20/19 18:23 Last Admin: 08/20/19 19:18 Dose: 1 each Documented by: TEE Consultations Consultation #1: dr. [email or web address], surgery updated patient's symptoms test results. States that if patient is feeling better and has no sign or symptom of infection or pain it than iliopsoas fluid collection is unlikely clinically relevant. Time: 20:13 Vital Signs Vital signs: Vital Signs - 8 hr 08/20/19 20:34 Temperature 98.4 F Pulse Rate 102 H Respiratory Rate 23 Blood Pressure [Right Arm] 111/66 Pulse Oximetry 95 MDM - Abdominal Pain Lab Data Attestation: I reviewed the patient's lab results. Result diagrams: 08/20/19 18:00 08/20/19 18:00 Labs: Lab Results 08/20/19 08/20/19 08/20/19 Range/Units 18:00 18:00 18:00 WBC 9.0 (4.5-11.0) X10^3/uL RBC 3.73 L (4.5-5.9) X10^6/uL Hgb 10.9 L (13.5-17.5) g/dL Hct 32.3 L (41-53) % MCV 86.8 (80-100) fL MCH 29.4 (26-34) PG MCHC 33.9 (30-36) % RDW 14.2 (11.6-14.8) % Plt Count 394 (150-400) X10^3/uL Neut % (Auto) 80.9 H (50-75) % Lymph % (Auto) 9.0 L (25-40) % [place] % (Auto) 9.2 (3-14) % Eos % (Auto) 0.7 L (2-4) % Baso % (Auto) 0.2 (0-2) % Neut # (Auto) 7300 H (0824-7955) /uL Lymph # (Auto) 800 L (2715-5289) /uL [place] # (Auto) 800 (0-900) /uL Eos # (Auto) 100 (0-450) /uL Baso # (Auto) 0 (0-100) /uL PT 11.9 (10.1-12.7) SECONDS INR 1.0 (0.9-1.3) APTT 30 D (26.4-36.2) SECONDS Sodium 123 L (137-145) mmol/L Potassium 5.0 (3.4-5.1) mmol/L Chloride 84 L (98-107) mmol/L Carbon Dioxide 26 (22-32) mmol/L BUN 22 H (9-20) mg/dL Creatinine 1.00 (0.66-1.25) mg/dL Estimated GFR > 60.0 (>60) mL/min BUN/Creatinine Ratio 22.0 (6-22) Glucose 79 L (80-110) mg/dL Calcium 9.0 (8.4-10.2) mg/dL Total Bilirubin 0.5 (0.2-1.3) mg/dL AST 29 (17-59) IU/L ALT 25 (21-72) IU/L Alkaline Phosphatase 107 (38-126) U/L Total Protein 6.2 L (6.3-8.2) g/dL Albumin 3.4 L (3.5-5.0) g/dL Globulin 2.8 (1.7-4.1) g/dL Albumin/Globulin Ratio 1.2 (1.0-2.8) Lipase 13 L (23-300) U/L Imaging Data CT scan - chest: Radiologist's impression: PROCEDURE: CT ANGIO CHEST PE PROTOCOL INDICATIONS: sob with lung ca and effusion TECHNIQUE: After the administration of intravenous contrast, 2 mm thick sections acquired from the pulmonary apices to the posterior costophrenic angles. 3-dimensional maximum intensity projection (MIP) coronal and sagittal reformats were then acquired through the thorax. For radiation dose reduction, the following was used: automated exposure control, adjustment of mA and/or kV according to patient size. COMPARISON: [facility], CT, CT CHEST WO CON, 08/15/2019, 7:33. FINDINGS: Image quality: Excellent. Pulmonary arteries: Pulmonary arteries are normal in size, and demonstrate no intraluminal filling defects to suggest central pulmonary embolism. Lungs and pleura: There is increased, severe right lung airspace opacity, anomaly within the right mid and lower lung. In increased, moderate right pleural effusion. No change in right lower lobe bronchus obstruction. Moderate apical predominant emphysema. S carring within the lateral aspect of the lingula. Mediastinum: Rightward cardiomediastinal shift. Heart size is normal, without pericardial effusion. No mediastinal or hilar adenopathy. Thoracic aorta is normal in caliber and enhancement. Esophagus is normal in caliber, without hiatal hernia. Bones and chest wall: No suspicious bony lesions. Ribs and thoracic spine appear intact throughout. Thyroid gland is within normal limits. No axillary or supraclavicular adenopathy. Abdomen: Visualized portions of the upper abdomen demonstrate a small amount of ascites. IMPRESSION: 1. No acute process. No pulmonary embolus. 2. No change in right lower lobe bronchus obstruction, likely secondary neoplasm. 3. Increased right lung pneumonia/postobstructive phenomenon, with increased right lung volume loss. 4. Small amount of ascites. Dictated by: Ariana Valle M.D. on 08/20/2019 at 19:20 CT scan - abdomen: Radiologist's impression: PROCEDURE: CT ABDOMEN PELVIS W CON INDICATIONS: new onset lung cancer and constipation TECHNIQUE: After the administration of intravenous contrast, 5 mm thick sections acquired from the diaphragm to the symphysis. 5 mm coronal and sagittal reformats were acquired. For radiation dose reduction, the following was used: automated exposure control, adjustment of mA and/or kV according to patient size. COMPARISON: [facility], CT, CT ANGIO CHEST PE PROTOCOL, 08/20/2019, 18:43. FINDINGS: Image quality: Excellent. ABDOMEN: Lung bases: There is severe airspace opacity within the right lower lung. Moderate right pleural effusion. Mild patchy airspace opacity within the left posterior lung base. Calcification of the coronary vasculature. Heart size is normal. Solid organs: Liver is normal in size and enhancement. Gallbladder is within normal limits. Biliary system is non dilated. Pancreas enhances normally. A few scattered pancreatic calcifications are present. Spleen is normal in size and enhancement. No adrenal nodules. Delayed left nephrogram. Mild left hydronephrosis. Peritoneum and bowel: Bowel loops demonstrate normal wall thickness and caliber. No pneumoperitoneum. Small amount of ascites. Nodes and vessels: No retroperitoneal or mesenteric adenopathy by size criteria. Aorta and inferior vena cava are normal in size. Miscellaneous: No ventral hernias. PELVIS: Genitourinary: Bladder wall thickness is normal. Miscellaneous: No inguinal hernias or adenopathy. Bones: No suspicious bony lesions. Left iliopsoas bursal fluid collection. Peripherally enhancing focus within the left iliopsoas bursa measuring roughly 33 mm. No vertebral body compression fractures. IMPRESSION: 1. Severe right lung base airspace opacity with moderate parapneumonic effusion. 2. Coronary artery disease. 3. Small amount of ascites. 4. Mild left hydronephrosis with delayed left nephrogram, suggestive of left ureteral or ureteropelvic junction obstruction. Obstructing neoplasm may also be present. 5. Left iliopsoas bursitis. Left iliopsoas bursal fluid collection, which may indicate infection. 6. Chronic pancreatitis. Dictated by: Ariana Valle M.D. on 08/20/2019 at 19:15 MDM Narrative Medical decision making narrative: The patient had bowel movement after enema he overall feels significantly better. CTs do reveal parapneumonic effusion in chest. He was on antibiotics he had a thoracentesis it was drained. He understands and knows that this may need to be drained again. He does not have infectious like symptoms at this time. Patient abdominal CT shows a fluid collection in left iliopsoas area questionable infectious versus bursitis. Patient has absolutely no pain in that area. At this time I have consult with surgery who agrees with discharging patient home. He is clinically improved with bowel movement. No signs or symptoms of so as infection. He is on stool softeners on a bowel regimen now at home. Blood work also reveals mild hyponatremia it is a little worse than his baseline. Previously 126 now is 123. Overall asymptomatic. Discharge Plan Departure Patient Disposition: Home Clinical Impression: Constipation Qualifiers: Constipation type: other constipation type Qualified Code(s): K59.09 - Other constipation Discharge Date/Time: 08/20/19 20:35 Instructions: DI for Constipation Activity Restrictions/Additional Instructions: *You have been diagnosed with constipation *What to do: You may require drainage from her lung again. There is also a questionable area near your kidneys this will need to have further investigation as well. At this time as long as your taking pain medications such as oxycodone you need to be taking a stool softener such as Dulcolax, MiraLax, Metamucil, please take these as directed *Continue to take medications as directed *Follow up with your primary care provider in 2-3 days *Return to ER if you should have increasing shortness of breath, fevers, confusion, increasing abdominal pain, inability to have bowel movement or uri maddison or any new, worsening or concerning symptoms Prescriptions: No Action acetaminophen 325 MG tablet 650 mg PO PRN PRN (Reason: PAIN) Qty: 0 RF: 0 diphenhydramine HCl [Benadryl Allergy] 25 MG tablet 50 mg PO BEDTIME Qty: 0 RF: 0 calcium carbonate [Tums] 500 MG tablet,chewable 500 mg PO PRN PRN (Reason: Indigestion) Qty: 0 RF: 0 docusate sodium 100 mg capsule 100 mg PO DAILY RF: 0 methocarbamol 500 mg tablet 500 mg PO QID PRNRF: 0 magnesium hydroxide [Milk of Magnesia] 400 mg/5 mL suspension 30 ml PO DAILY PRNRF: 0 ibuprofen 600 mg tablet 600 mg PO Q6H PRN (Reason: pain) Qty: 30 RF: 0 Spiriva with HandiHaler 18 mcg capsule, w/inhalation device 1 cap INHALATION DAILY Qty: 60 RF: 0 triamcinolone acetonide 0.1 % cream 1 applictn Topical BEDTIME RF: 0 omeprazole 20 mg Tablet,Delayed Release (Dr/Ec) 40 mg PO QAM RF: 0 nicotine 7 mg/24 hr Patch 24 Hour 7 mg topical DAILY Qty: 14 RF: 0 guaifenesin [Mucus Relief ER] 600 mg Tablet Extended Release 12hr 1,200 mg PO BID Qty: 20 RF: 0 oxycodone-acetaminophen 5-325 mg Tablet 1 - 2 tab PO Q4HR PRN (Reason: Pain, Severe (7-10)) Qty: 45 RF: 0 tamsulosin [Flomax] 0.4 mg Capsule 0.4 mg PO DAILY Qty: 30 RF: 0 bupropion HCl (smoking deter) 150 mg tablet extended release 12 hr 150 mg PO DAILY Qty: 30 RF: 0 albuterol sulfate 90 mcg/actuation HFA aerosol inhaler 1 inhalation INHALATION QID PRN (Reason: shortness of breath or wheezing) Qty: 18 RF: 0 Referrals: Lili Schaeffer DO [Primary Care Provider] -
[2019-08-20 18:32] LABS: Prothrombin Time 11.9 SECONDS (10.1-12.7)
[2019-08-20 18:34] LABS: PTT Partial Thromboplastin Tim 30 SECONDS (26.4-36.2)
[2019-08-20 18:36] LABS: Alanine Aminotransferase 25 IU/L (21-72); Albumin 3.4 g/dL (3.5-5.0); Albumin Globulin Ratio 1.2 (1.0-2.8); Alkaline Phosphatase 107 U/L (38-126); Aspartate Aminotransferase 29 IU/L (17-59); Bilirubin Total 0.5 mg/dL (0.2-1.3); Blood Urea Nitrogen 22 mg/dL (9-20); Carbon Dioxide 26 mmol/L (22-32); Chloride 84 mmol/L (98-107); Estimated Glomerular Filt Rate > 60.0 mL/min (>60); Globulin 2.8 g/dL (1.7-4.1); Glucose 79 mg/dL (80-110); HEMOLYSIS < 15 (0-50); Lipase 13 U/L (23-300); Sodium 123 mmol/L (137-145); Total Protein 6.2 g/dL (6.3-8.2)
--- NOTE | 2019-08-20 18:43 | DI.CT.S_ITS ---
PROCEDURE: CT ANGIO CHEST PE PROTOCOL INDICATIONS: sob with lung ca and effusion TECHNIQUE: After the administration of intravenous contrast, 2 mm thick sections acquired from the pulmonary apices to the posterior costophrenic angles. 3-dimensional maximum intensity projection (MIP) coronal and sagittal reformats were then acquired through the thorax. For radiation dose reduction, the following was used: automated exposure control, adjustment of mA and/or kV according to patient size. COMPARISON: [facility], CT, CT CHEST WO CON, 08/15/2019, 7:33. FINDINGS: Image quality: Excellent. Pulmonary arteries: Pulmonary arteries are normal in size, and demonstrate no intraluminal filling defects to suggest central pulmonary embolism. Lungs and pleura: There is increased, severe right lung airspace opacity, anomaly within the right mid and lower lung. In increased, moderate right pleural effusion. No change in right lower lobe bronchus obstruction. Moderate apical predominant emphysema. Scarring within the lateral aspect of the lingula. Mediastinum: Rightward cardiomediastinal shift. Heart size is normal, without pericardial effusion. No mediastinal or hilar adenopathy. Thoracic aorta is normal in caliber and enhancement. Esophagus is normal in caliber, without hiatal hernia. Bones and chest wall: No suspicious bony lesions. Ribs and thoracic spine appear intact throughout. Thyroid gland is within normal limits. No axillary or supraclavicular adenopathy. Abdomen: Visualized portions of the upper abdomen demonstrate a small amount of ascites. IMPRESSION: 1. No acute process. No pulmonary embolus. 2. No change in right lower lobe bronchus obstruction, likely secondary neoplasm. 3. Increased right lung pneumonia/postobstructive phenomenon, with increased right lung volume loss. 4. Small amount of ascites. Dictated by: Ariana Valle M.D. on 08/20/2019 at 19:20 Approved by: Ariana Valle M.D. on 08/20/2019 at 19:24
[2019-08-20] MEDS: KETOROLAC 60 MG/2 ML VIAL 15 MG IV (19:14)
[2019-08-20] MEDS: FLEETS ENEMA 1 EACH PR (19:18)
--- NOTE | 2019-08-20 20:17 | PC.NURSE ---
Pt had one large BM post enema
[2019-08-20 20:34] VITALS: BP 111/66; PULSE 102; RESP 23; TEMP 36.9; O2SAT 95
== END 2019-08-20 20:35 | disposition home or self-care (01) ==
PROVIDERS: Emergency Medicine; Emergency Provider Emergency Medicine; Family Provider Family Medicine; PCP Family Medicine
DX: K59.09 Other constipation (principal); J90 Pleural effusion, not elsewhere classified; R14.0 Abdominal distension (gaseous); R10.9 Unspecified abdominal pain; R91.8 Other nonspecific abnormal finding of lung field; M47.816 Spondylosis without myelopathy or radiculopathy, lumbar region
CPT/HCPCS: 36415; 71275; 74022; 74177; 80053; 83690; 85025; 85610; 85730; 93005; 96374; 99282; 99285; J1885

== ENCOUNTER 2019-08-25 17:34 | Emergency (ER) | payer OTHER, SELFPAY ==
[2019-08-12 16:15] VITALS: BMI 20.7
[2019-08-25] VITALS (10 sets, daily range): BP systolic 111–130; BP diastolic 62–74; PULSE 86–94; RESP 11–26; TEMP 36.7–37; O2SAT 95–100
--- NOTE | 2019-08-25 17:49 | DI.RAD.S_ITS ---
PROCEDURE: XR CHEST 1V INDICATIONS: SHORNTESS OF BREATH TECHNIQUE: One view of the chest was acquired. COMPARISON: [facility], , XR CHEST 1V, 08/13/2019, 10:04. FINDINGS: Surgical changes and devices: None. Lungs and pleura: There is a large right pleural effusion, markedly increased in size when compared with the prior plain film dated 08/13/19. The left lung is clear. Emphysematous changes and right apical fibrosis is redemonstrated. Mediastinum: Mediastinal contours appear normal. Heart size is normal. Bones and chest wall: No suspicious bony lesions. Overlying soft tissues appear unremarkable. IMPRESSION: Large right pleural effusion increased from the prior study. Dictated by: Mickie Montano M.D. on 08/25/2019 at 18:13 Approved by: Mickie Montano M.D. on 08/25/2019 at 18:15
--- NOTE | 2019-08-25 18:25 | ED.SOB ---
HPI - SOB/Dyspnea General Chief Complaint: Shortness of Breath/Dyspnea Stated Complaint: SOB x1 day Time Seen by Provider: 08/25/19 18:04 Source: patient and EMS Mode of arrival: EMS Limitations: no limitations History of Present Illness HPI Narrative: 64-year-old male who with the middle last month was admitted to this hospital for pneumonia and a right-sided pleural effusion. During that admission there was findings on his x-ray and CT scan of lung cancer. The effusion in the right side of his lung was exudative. He was given azithromycin Rocephin during that time for the infection. Discharged home after a short stay in the hospital. Since that time he has had a biopsy. Patient stated that last week he found out that biopsy was positive for cancer. He has not seen Oncology or has had any other treatment since that time. On the of last patient was seen here in the emergency department for constipation issues. He was given an enema which seemed to improve/resolve his symptoms. Since then he has been taking laxatives and stool softeners. He states that he has been having bowel movements. Some of them have been loose stools. His last bowel movement was just prior to arrival here in the emergency department. He states that for the past couple days he has noticed worsening shortness of breath. Has had significant dyspnea on exertion. He has also noticed abdominal distention. He thinks that his abdominal distention is causing his problems with breathing. No further fevers. Related Data Home Medications Medication Instructions Recorded Confirmed acetaminophen 650 mg PO PRN PRN #0 09/06/16 08/20/19 calcium carbonate [Tums] 500 mg PO PRN PRN #0 11/07/16 08/20/19 diphenhydramine HCl [Benadryl 50 mg PO BEDTIME #0 11/07/16 08/20/19 Allergy] omeprazole 40 mg PO QAM 08/12/19 08/20/19 triamcinolone acetonide 1 applictn TOPICAL BEDTIME 08/12/19 08/20/19 docusate sodium 100 mg capsule 100 mg PO DAILY cap 08/20/19 magnesium hydroxide 400 mg/5 mL 30 ml PO DAILY PRN ml 08/20/19 08/20/19 oral suspension methocarbamol 500 mg tablet 500 mg PO QID PRN tab 08/20/19 Previous Rx's Medication Instructions Recorded ibuprofen 600 mg tablet 600 mg PO Q6H PRN #30 tab 07/15/19 tiotropium bromide 18 mcg capsule 1 cap INHALATION DAILY #60 07/30/19 with inhalation device inhalation albuterol sulfate 1 inhalation INHALATION QID PRN 08/16/19 #18 gram bupropion HCl (smoking deter) 150 mg PO DAILY #30 tab 08/16/19 guaifenesin [Mucus Relief ER] 1,200 mg PO BID #20 tab 08/16/19 nicotine 7 mg TOPICAL DAILY #14 each 08/16/19 oxycodone-acetaminophen 1 - 2 tab PO Q4HR PRN #45 tab 08/16/19 tamsulosin [Flomax] 0.4 mg PO DAILY #30 cap 08/16/19 Allergies Allergy/AdvReac Type Severity Reaction Status Date / Time No Known Drug Allergies Allergy Verified 08/20/19 09:41 Review of Systems Constitutional Constitutional: Denies fever(s) and Denies headache(s) ENT Ears, Nose, Mouth, and Throat: Denies headache(s) Cardiovascular Cardiovascular: Denies chest pain, Denies palpitations, Reports dyspnea and Reports dyspnea on exertion Respiratory Respiratory: Reports dyspnea and Reports dyspnea on exertion Gastrointestinal Gastrointestinal: Denies abdominal pain, Reports bloating, Reports change in stool character, Denies nausea and Denies vomiting Genitourinary Genitourinary: Denies dysuria Musculoskeletal Musculoskeletal: Denies back pain, Denies myalgias and Denies arthralgias Integumentary/Breasts Skin/Breast: Denies lesions and Denies rash Neurologic Neurologic: Denies behavioral changes and Denies headache(s) Psychiatric Psychiatric: Denies behavioral changes Endocrine Endocrine: Denies palpitations Hematologic/Lymphatic Hematologic/Lymphatic: Denies easy bleeding and Denies easy bruising Patient History Medical History Community acquired pneumonia (Acute 06/2019) COPD (chronic obstructive pulmonary disease) (Acute) Mass of right lung (Acute 07/2019) Social History household members: none Smoking Status: Current some day smoker alcohol intake: former Alcohol type: other Substance Use Type: does not use Exam Initial Vital Signs Initial Vital Signs: Vital Signs Temperature 98.6 F 08/25/19 17:44 Pulse Rate 94 H 08/25/19 17:44 Respiratory Rate 22 08/25/19 17:44 Blood Pressure 111/74 08/25/19 17:44 Pulse Oximetry 99 08/25/19 17:44 Const General: cooperative, well developed and well groomed Orientation: alert, awake and oriented x3 HENMT Head: normal to inspection and normocephalic Resp Effort & Inspection: labored, no retractions and tachypneic Auscultation: diminished lung sounds on the right Cardio Rate: tachycardic Rhythm: regular rhythm Pulses: radial pulses present GI Inspection: distended Palpation: firm, No guarding and No tender Skin Lesions: no lesions Rashes: no rashes Neuro General: alert and awake Cognition: normal cognition Speech: speech normal Extrem General: normal to inspection and capillary refill normal Psych Appearance: grossly normal and well kempt Scores GCS [place] coma scale eye opening: Spontaneous [place] coma scale verbal response: Orientated [place] coma scale motor response: Obey commands [place] coma scale total score: 15 Course Orders Ordered: ED Orders 08/25/19 17:30 B Type Natriuretic Peptide Stat Basic Metabolic Panel Stat Complete Blood Count AUTO DIFF Stat Hepatic (Liver) Panel Stat Lipase Stat Partial Thromboplastin Time Stat Procalcitonin Stat Prothrombin Time INR Stat Troponin I Stat 08/25/19 17:49 Chest [XR chest 1V] Stat 08/25/19 18:27 CT abdomen pelvis w con Stat CT angio chest PE protocol Stat 08/25/19 18:44 EKG-12 Lead Stat 08/25/19 18:48 Lactate (Lactic Acid) Stat Sodium Chloride (Normal Saline 0.9%) 1,000 mls @ 125 mls/hr IV CONT KOFFI Last Admin: 08/25/19 19:20 Dose: 125 mls/hr Documented by: CHARITY Discontinued Medications Hydrocodone Bitart/Acetaminophen ([place] 5/325) 1 tab PO NOW ONE Stop: 08/25/19 20:54 Last Admin: 08/25/19 20:58 Dose: 1 tab Documented by: CHARITY Vital Signs Vital signs: Vital Signs - 8 hr 08/25/19 17:44 08/25/19 19:21 08/25/19 19:59 Temperature 98.6 F Pulse Rate 94 H 88 92 H Respiratory Rate 22 26 H 26 H Blood Pressure 111/74 Blood Pressure [Left Arm] 118/70 122/63 Pulse Oximetry 99 100 98 08/25/19 20:00 08/25/19 20:32 08/25/19 21:16 Temperature Pulse Rate 87 86 89 Respiratory Rate 16 11 L 22 Blood Pressure Blood Pressure [Left Arm] 116/63 118/62 130/63 Pulse Oximetry 99 99 97 MDM - SOB/Dyspnea Medical Records Attestation: I reviewed the patient's medical records. Lab Data Attestation: I reviewed the patient's lab results. Result diagrams: 08/25/19 17:30 08/25/19 17:30 Labs: Lab Results 08/25/19 08/25/19 08/25/19 Range/Units 17:30 17:30 17:30 WBC 12.2 H (4.5-11.0) X10^3/uL RBC 3.89 L (4.5-5.9) X10^6/uL Hgb 11.2 L (13.5-17.5) g/dL Hct 33.7 L (41-53) % MCV 86.6 (80-100) fL MCH 28.9 (26-34) PG MCHC 33.4 (30-36) % RDW 14.2 (11.6-14.8) % Plt Count 430 H (150-400) X10^3/uL Neut % (Auto) 85.1 H (50-75) % Lymph % (Auto) 8.0 L (25-40) % [place] % (Auto) 6.7 (3-14) % Eos % (Auto) 0.1 L (2-4) % Baso % (Auto) 0.1 (0-2) % Neut # (Auto) 05112 H (0138-3310) /uL Lymph # (Auto) 1000 L (1878-4405) /uL [place] # (Auto) 800 (0-900) /uL Eos # (Auto) 0 (0-450) /uL Baso # (Auto) 0 (0-100) /uL PT 11.0 (10.1-12.7) SECONDS INR 1.0 (0.9-1.3) APTT 29 (26.4-36.2) SECONDS Sodium 120 L (137-145) mmol/L Potassium 5.7 H (3.4-5.1) mmol/L Chloride 81 L (98-107) mmol/L Carbon Dioxide 29 (22-32) mmol/L BUN 29 H (9-20) mg/dL Creatinine 1.20 (0.66-1.25) mg/dL Estimated GFR > 60.0 (>60) mL/min BUN/Creatinine Ratio 24.2 H (6-22) Glucose 99 (80-110) mg/dL Lactate (0.7-2.1) mmol/L Calcium 9.1 (8.4-10.2) mg/dL Total Bilirubin 0.5 (0.2-1.3) mg/dL Conjugated Bilirubin 0.0 (0.0-0.3) md/dL Unconjugated Bilirubin 0.2 (0.0-1.1) mg/dL AST 32 (17-59) IU/L ALT 18 (<50) IU/L Alkaline Phosphatase 192 H D (38-126) U/L Troponin I 0.042 H (0.01-0.034) ng/mL B-Natriuretic Peptide 107 H (<100) Total Protein 6.7 (6.3-8.2) g/dL Albumin 3.4 L (3.5-5.0) g/dL Globulin 3.3 (1.7-4.1) g/dL Albumin/Globulin Ratio 1.0 (1.0-2.8) Lipase 19 L (23-300) U/L Procalcitonin (<0.5) ng/mL 08/25/19 08/25/19 Range/Units 17:30 18:48 WBC (4.5-11.0) X10^3/uL RBC (4.5-5.9) X10^6/uL Hgb (13.5-17.5) g/dL Hct (41-53) % MCV (80-100) fL MCH (26-34) PG MCHC (30-36) % RDW (11.6-14.8) % Plt Count (150-400) X10^3/uL Neut % (Auto) (50-75) % Lymph % (Auto) (25-40) % [place] % (Auto) (3-14) % Eos % (Auto) (2-4) % Baso % (Auto) (0-2) % Neut # (Auto) (6624-9047) /uL Lymph # (Auto) (6724-5792) /uL [place] # (Auto) (0-900) /uL Eos # (Auto) (0-450) /uL Baso # (Auto) (0-100) /uL PT (10.1-12.7) SECONDS INR (0.9-1.3) APTT (26.4-36.2) SECONDS Sodium (137-145) mmol/L Potassium (3.4-5.1) mmol/L Chloride (98-107) mmol/L Carbon Dioxide (22-32) mmol/L BUN (9-20) mg/dL Creatinine (0.66-1.25) mg/dL Estimated GFR (>60) mL/min BUN/Creatinine Ratio (6-22) Glucose (80-110) mg/dL Lactate 0.9 (0.7-2.1) mmol/L Calcium (8.4-10.2) mg/dL Total Bilirubin (0.2-1.3) mg/dL Conjugated Bilirubin (0.0-0.3) md/dL Unconjugated Bilirubin (0.0-1.1) mg/dL AST (17-59) IU/L ALT (<50) IU/L Alkaline Phosphatase (38-126) U/L Troponin I (0.01-0.034) ng/mL B-Natriuretic Peptide (<100) Total Protein (6.3-8.2) g/dL Albumin (3.5-5.0) g/dL Globulin (1.7-4.1) g/dL Albumin/Globulin Ratio (1.0-2.8) Lipase (23-300) U/L Procalcitonin 0.41 (<0.5) ng/mL Imaging Data CT scan - abdomen: Radiologist's impression: [address] [address] [address] Scan Report Signed Patient: Rafy Renner [facility]#: [id number] : 6Acct:[id number] Age/Sex: 64 / MDate of Service: 08/25/19 Loc: ED Accession Number: [id number] Procedure: CT abdomen pelvis w con Ordering Provider: Babatunde Daniels D.O. PROCEDURE: CT ABDOMEN PELVIS W CON INDICATIONS: Abdominal distension with shortness of breath TECHNIQUE: After the administration of intravenous contrast, 5 mm thick sections acquired from the diaphragm to the symphysis. 5 mm coronal and sagittal reformats were acquired. For radiation dose reduction, the following was used: automated exposure control, adjustment of mA and/or kV according to patient size. COMPARISON: [facility], CT, CT ANGIO CHEST PE PROTOCOL, 08/20/2019, 18:43. [facility], CT, CT ABDOMEN PELVIS W CON, 08/20/2019, 18:43. FINDINGS: Image quality: Excellent. ABDOMEN: Lung bases: The inferior aspect of a large right pleural effusion can't be visualized. Dense consolidation is visualized within the inferior aspect of the right middle and lower lobes. There is a moderate low density pericardial effusion. Solid organs: Liver is normal in size and enhancement. Gallbladder is unremarkable. Biliary system is non dilated. Pancreas enhances normally. Spleen is normal in size and enhancement. No adrenal nodules. Kidneys demonstrate normal size and enhancement, without hydronephrosis. Peritoneum and bowel: Stomach is predominantly decompressed. The small bowel demonstrates overall normal caliber and wall thickness. The ascending, transverse, and descending colon are markedly dilated and gas and fluid filled. No mucosal thickening. There are scattered sigmoid diverticula. No evidence for diverticulitis. There is a moderate amount of low-density ascites. The ascites within the pelvis demonstrates rim enhancement. The amount of ascites is increased when compared with the prior CT dated 08/20/19. Nodes and vessels: No retroperitoneal or mesenteric adenopathy by size criteria. There is enhancement of the omentum suggesting peritoneal carcinomatosis. Aorta and inferior vena cava are normal in size. There are scattered atheromatous calcifications throughout the aorta and iliac arteries bilaterally. Miscellaneous: No ventral hernias. PELVIS: Genitourinary: Bladder wall thickness is normal. Miscellaneous: No inguinal hernias or adenopathy. Bones: No suspicious bony lesions. No vertebral body compression fractures. IMPRESSION: 1. Moderate low density pericardial effusion. 2. Large low-density right pleural effusion. 3. Moderate low-density ascites which is increased when compared with prior CT dated 08/20/19. 4. Rim enhancement of the pelvic ascites and enhancement of the omentum suggesting malignant ascites and peritoneal carcinomatosis. 5. Marked dilatation and gas and fluid-filled colon suggesting ileus. Obstruction is considered less likely given the extensive dilatation to the level of the distal sigmoid. 6. Mid sigmoid diverticulosis. No findings to suggest acute diverticulitis. These findings were discussed with Dr. Sotelo. 8:05 PM on 08/25/19. Dictated by: Mickie Montano M.D. on 08/25/2019 at 19:57 Approved by: Mickie Montano M.D. on 08/25/2019 at 20:07 Chest x-ray: Radiologist's impression: [address] [address] XRay Report Signed Patient: Rafy Renner [facility]#: [id number] : 6Acct:[id number] Age/Sex: 64 / MDate of Service: 08/25/19 Loc: ED Accession Number: [id number] Procedure: XR chest 1V Ordering Provider: Morena Posada MD PROCEDURE: XR CHEST 1V INDICATIONS: SHORNTESS OF BREATH TECHNIQUE: One view of the chest was acquired. COMPARISON: [facility], , XR CHEST 1V, 08/13/2019, 10:04. FINDINGS: Surgical changes and devices: None. Lungs and pleura: There is a large right pleural effusion, markedly increased in size when compared with the prior plain film dated 08/13/19. The left lung is clear. Emphysematous changes and right apical fibrosis is redemonstrated. Mediastinum: Mediastinal contours appear normal. Heart size is normal. Bones and chest wall: No suspicious bony lesions. Overlying soft tissues appear unremarkable. IMPRESSION: Large right pleural effusion increased from the prior study. Dictated by: Mickie Montano M.D. on 08/25/2019 at 18:13 Approved by: Mickie Montano M.D. on 08/25/2019 at 18:15 CT scan - chest: Radiologist's impression: [address] [address] [address] Scan Report Addendum Patient: Rafy Renner [facility]#: [id number] : 6Acct:[id number] Age/Sex: 64 / MDate of Service: 08/25/19 Loc: ED Accession Number: [id number] Procedure: CT angio chest PE protocol Ordering Provider: Babatunde Daniels D.O. ADDENDUM This report includes an Addendum and supersedes previous reports for this exam. PROCEDURE: CT ANGIO CHEST PE PROTOCOL INDICATIONS: Chest pain, shortness of breath TECHNIQUE: After the administration of intravenous contrast, 2 mm thick sections acquired from the pulmonary apices to the posterior costophrenic angles. 3-dimensional maximum intensity projection (MIP) coronal and sagittal reformats were then acquired through the thorax. For radiation dose reduction, the following was used: automated exposure control, adjustment of mA and/or kV according to patient size. COMPARISON: None. FINDINGS: Image quality: Excellent. Pulmonary arteries: Pulmonary arteries are normal in size, and demonstrate no intraluminal filling defects to suggest central pulmonary embolism. Lungs and pleura: There is a large low-density right pleural effusion. Severe fibrosis is present within the aerated portions of the right lung. Additionally, there are superimposed consolidative radiopacities within the right upper and midlung. The inferior right lung is densely consolidated. Extensive paraseptal and centrilobular emphysema is present within the left lung. Consolidative radiopacities are present within the posterior inferior lingula. Mediastinum: Heart size is normal, without pericardial effusion. There are enlarged right hilar lymph nodes. There is a 1.8 cm in diameter subcarinal lymph node. Thoracic aorta is normal in caliber and enhancement. Esophagus is normal in caliber, without hiatal hernia. Bones and chest wall: No suspicious bony lesions. Ribs and thoracic spine appear intact throughout. Thyroid gland is unremarkable. No axillary or supraclavicular adenopathy. Abdomen: Please see detailed description of intra-abdominal findings on the associated CT of the abdomen from the same date. IMPRESSION: 1. Large low-density right pleural effusion. 2. Right upper lobe airspace opacities superimposed on severe fibrotic change and dense consolidation of the right lower lung. 3. Extensive left emphysematous change. 4. Left hilar and mediastinal adenopathy. 5. No acute pulmonary embolus. Dictated by: Mickie Montano M.D. on 08/25/2019 at 19:50 Approved by: Mickie Montano M.D. on 08/25/2019 at 19:56 ADDENDUM: Please note, there is a moderate-sized low density pericardial effusion. Dictated by: Mickie Montano M.D. on 08/25/2019 at 20:10 Approved by: Mickie Montano M.D. on 08/25/2019 at 20:10 Addendum Dictated By:Mickie Montano MD Addendum Signed By: Addendum Cosigned By: DD/ /07/2013 TD/TT: 08/25/1902/07/2013 PROCEDURE: CT ANGIO CHEST PE PROTOCOL INDICATIONS: Chest pain, shortness of breath TECHNIQUE: After the administration of intravenous contrast, 2 mm thick sections acquired from the pulmonary apices to the posterior costophrenic angles. 3-dimensional maximum intensity projection (MIP) coronal and sagittal reformats were then acquired through the thorax. For radiation dose reduction, the following was used: automated exposure control, adjustment of mA and/or kV according to patient size. COMPARISON: None. FINDINGS: Image quality: Excellent. Pulmonary arteries: Pulmonary arteries are normal in size, and demonstrate no intraluminal filling defects to suggest central pulmonary embolism. Lungs and pleura: There is a large low-density right pleural effusion. Severe fibrosis is present within the aerated portions of the right lung. Additionally, there are superimposed consolidative radiopacities within the right upper and midlung. The inferior right lung is densely consolidated. Extensive paraseptal and centrilobular emphysema is present within the left lung. Consolidative radiopacities are present within the posterior inferior lingula. Mediastinum: Heart size is normal, without pericardial effusion. There are enlarged right hilar lymph nodes. There is a 1.8 cm in diameter subcarinal lymph node. Thoracic aorta is normal in caliber and enhancement. Esophagus is normal in caliber, without hiatal hernia. Bones and chest wall: No suspicious bony lesions. Ribs and thoracic spine appear intact throughout. Thyroid gland is unremarkable. No axillary or supraclavicular adenopathy. Abdomen: Please see detailed description of intra-abdominal findings on the associated CT of the abdomen from the same date. IMPRESSION: 1. Large low-density right pleural effusion. 2. Right upper lobe airspace opacities superimposed on severe fibrotic change and dense consolidation of the right lower lung. 3. Extensive left emphysematous change. 4. Left hilar and mediastinal adenopathy. 5. No acute pulmonary embolus. Dictated by: Mickie Montano M.D. on 08/25/2019 at 19:50 Approved by: Mickie Montano M.D. on 08/25/2019 at 19:56 ECG Data Attestation: I personally reviewed and interpreted this ECG as follows: Prior ECG tracings: not available for review Interpretation: Sinus rhythm Ventricular rate of 90 Normal axis Normal QRS Normal QTC No ST T wave changes MDM Narrative Medical decision making narrative: Patient is tachypneic. Does have quite a bit air hunger which is improved with his oxygen by nasal cannula. He does have abdominal distention. He denies any history of liver issues and his labs support this. His chest x-ray does show of large right-sided pleural effusion. This is worse from when he was here in the middle of last month. I suspect that this is the majority of the cause of his shortness of breath. His abdominal CT scan does show air and fluid in his colon. The radiologist did have some concern about toxic megacolon versus C diff. This could also be secondary to his laxative use. I suspect that his abdominal distention is also causing his shortness of breath. The only antibiotics he has been on recently has been azithromycin and Rocephin. We are unable to obtain a stool sample here in the emergency department for culture. I feel given his underlying issues to include lung cancer, continued/recurrent pleural effusions that sending him to a facility that could potentially do definitive treatment is warranted. Also feel given his GI issues that sending to facilitate has GI capability is also appropriate. There is no surgical issues currently. I did discuss the case with Dr. Ratliff with Internal Medicine at [facility] who accepts the patient in transport. The patient is stable for transport. I did discuss the need for transport and the findings on the scans with the patient. He expressed understanding and agreement Discharge Plan Departure Patient Disposition: [facility] Clinical Impression: Pleural effusion, Shortness of breath, Abdominal distension Lung cancer Qualifiers: Laterality: unspecified laterality Lung location: unspecified part of lung Qualified Code(s): C34.90 - Malignant neoplasm of unspecified part of unspecified bronchus or lung Prescriptions: No Action acetaminophen 325 MG tablet 650 mg PO PRN PRN (Reason: PAIN) Qty: 0 RF: 0 diphenhydramine HCl [Benadryl Allergy] 25 MG tablet 50 mg PO BEDTIME Qty: 0 RF: 0 calcium carbonate [Tums] 500 MG tablet,chewable 500 mg PO PRN PRN (Reason: Indigestion) Qty: 0 RF: 0 docusate sodium 100 mg capsule 100 mg PO DAILY RF: 0 methocarbamol 500 mg tablet 500 mg PO QID PRNRF: 0 magnesium hydroxide [Milk of Magnesia] 400 mg/5 mL suspension 30 ml PO DAILY PRNRF: 0 ibuprofen 600 mg tablet 600 mg PO Q6H PRN (Reason: pain) Qty: 30 RF: 0 Spiriva with HandiHaler 18 mcg capsule, w/inhalation device 1 cap INHALATION DAILY Qty: 60 RF: 0 triamcinolone acetonide 0.1 % cream 1 applictn Topical BEDTIME RF: 0 omeprazole 20 mg Tablet,Delayed Release (Dr/Ec) 40 mg PO QAM RF: 0 nicotine 7 mg/24 hr Patch 24 Hour 7 mg topical DAILY Qty: 14 RF: 0 guaifenesin [Mucus Relief ER] 600 mg Tablet Extended Release 12hr 1,200 mg PO BID Qty: 20 RF: 0 oxycodone-acetaminophen 5-325 mg Tablet 1 - 2 tab PO Q4HR PRN (Reason: Pain, Severe (7-10)) Qty: 45 RF: 0 tamsulosin [Flomax] 0.4 mg Capsule 0.4 mg PO DAILY Qty: 30 RF: 0 bupropion HCl (smoking deter) 150 mg tablet extended release 12 hr 150 mg PO DAILY Qty: 30 RF: 0 albuterol sulfate 90 mcg/actuation HFA aerosol inhaler 1 inhalation INHALATION QID PRN (Reason: shortness of breath or wheezing) Qty: 18 RF: 0 Referrals: Lili Schaeffer DO [Primary Care Provider] -
[2019-08-25 18:41] LABS: Add Manual Diff / Slide Review NO; Basophils Absolute Auto 0 /uL (0-100); Basophils Percent Auto 0.1 % (0-2); Eosinophils Absolute Auto 0 /uL (0-450); Eosinophils Percent Auto 0.1 % (2-4); Hematocrit 33.7 % (41-53); Hemoglobin 11.2 g/dL (13.5-17.5); Lymphocytes Absolute Auto 1000 /uL (1100-4500); Mean Corpuscular HGB Conc 33.4 % (30-36); Mean Corpuscular Hemoglobin 28.9 PG (26-34); Mean Corpuscular Volume 86.6 fL (80-100); Monocytes Absolute Auto 800 /uL (0-900); Monocytes Percent Auto 6.7 % (3-14); Neutrophils Absolute Auto 10400 /uL (1500-7000); Neutrophils Percent Auto 85.1 % (50-75); Platelet Count 430 X10^3/uL (150-400); Red Blood Cell Count 3.89 X10^6/uL (4.5-5.9); Red Cell Distribution Width 14.2 % (11.6-14.8); White Blood Cell Count 12.2 X10^3/uL (4.5-11.0)
[2019-08-25 18:52] LABS: PTT Partial Thromboplastin Tim 29 SECONDS (26.4-36.2)
[2019-08-25 18:54] LABS: Alanine Aminotransferase 18 IU/L (<50); Albumin 3.4 g/dL (3.5-5.0); Alkaline Phosphatase 192 U/L (38-126); Aspartate Aminotransferase 32 IU/L (17-59); BUN Creatinine Ratio 24.2 (6-22); Bilirubin Total 0.5 mg/dL (0.2-1.3); Bilirubin Unconjugated 0.2 mg/dL (0.0-1.1); Blood Urea Nitrogen 29 mg/dL (9-20); Calcium 9.1 mg/dL (8.4-10.2); Carbon Dioxide 29 mmol/L (22-32); Chloride 81 mmol/L (98-107); Estimated Glomerular Filt Rate > 60.0 mL/min (>60); Globulin 3.3 g/dL (1.7-4.1); Glucose 99 mg/dL (80-110); HEMOLYSIS 29 (0-50); Lipase 19 U/L (23-300); Total Protein 6.7 g/dL (6.3-8.2)
[2019-08-25 19:03] LABS: Lactate (Lactic Acid) 0.9 mmol/L (0.7-2.1)
[2019-08-25 19:05] LABS: Troponin I 0.042 ng/mL (0.01-0.034)
[2019-08-25 19:13] LABS: B Type Natriuretic Peptide 107 (<100)
[2019-08-25 19:17] LABS: Potassium 5.7 mmol/L (3.4-5.1); Sodium 120 mmol/L (137-145)
[2019-08-25] MEDS: SODIUM CHLORIDE 0.9% 1,000 ML 125 ML IV (19:20)
[2019-08-25 19:36] LABS: Procalcitonin 0.41 ng/mL (<0.5)
--- NOTE | 2019-08-25 20:48 | PC.NURSE ---
Dr. Daniels at bedside to discuss plan of care. Warm blankets given and ice chips.
[2019-08-25] MEDS: HYDROCODONE/ACET 5/325 TABLET 1 TAB PO (20:58)
[2019-08-25] MEDS: MORPHINE 4 MG/ML INJ IV (22:48)
--- NOTE | 2019-08-26 10:17 | ONC.MSW ---
Description: Initial Navigation T/C Activity: Left pt a message that we received his referral, that we know that he is currently hospitalized at [facility], and to please return this call to let us know his medical status and to schedule appt. w/navigator.
--- NOTE | 2019-09-14 22:48 | PC.NURSE ---
NS finished infusing at 1930 with a total of 1000mL infused.
--- NOTE | 2019-09-17 14:08 | ONC.MSW ---
Description: T/C re: scheduling referral Activity: Attempted to call pt re: getting him scheduled, no voicemail, no answer.
== END 2019-08-25 23:25 | disposition short-term general hospital (02) ==
PROVIDERS: Emergency Provider Emergency Medicine; Family Provider Family Medicine; PCP Family Medicine
DX: J90 Pleural effusion, not elsewhere classified (principal); R06.02 Shortness of breath; R14.0 Abdominal distension (gaseous); C34.90 Malignant neoplasm of unspecified part of unspecified bronchus or lung
CPT/HCPCS: 36415; 71045; 71275; 74177; 80048; 80076; 83605; 83690; 83880; 84145; 84484; 85025; 85610; 85730; 93005; 93010; 96374; 99284; 99285; J2270; Q9967